=== PATIENT | male | born 2000 | race Caucasian/White ===

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

== ENCOUNTER → 2021-02-03 | Outpatient (CLI) | payer BC | LOC: LABNPT 07:59 | PROVIDERS: ATTEND Obstetrics & Gynecology | DX: Z20.822 Contact with and (suspected) exposure to COVID-19 (principal) | CPT/HCPCS: 87636 ==

== ENCOUNTER → 2021-08-11 | Outpatient (CLI) | payer OTHER | LOC: LABNPT 09:41 | PROVIDERS: ATTEND Obstetrics & Gynecology | DX: U07.1 COVID-19 (principal) | CPT/HCPCS: 87636 ==

== ENCOUNTER 2022-01-04 11:42 | Inpatient (IN) | payer OTHER ==
[~2022-01-04] VITALS: Ht 195 cm; Wt 71.0 kg
[2022-01-04 12:24] LABS: BASOPHILS # (AUTO) 0.1 10^3/uL (0.0-0.1); BASOPHILS % (AUTO) 1 % (0-10); EOSINOPHILS % (AUTO) 0 % (0-10); HEMATOCRIT 47 % (40-54); HEMOGLOBIN 15.6 g/dL (13.3-17.7); LYMPHOCYTES % (AUTO) 26 % (12-44); MEAN CORPUSCULAR HEMOGLOBIN 27 pg (25-34); MEAN CORPUSCULAR HGB CONC 33 g/dL (32-36); MEAN CORPUSCULAR VOLUME 82 fL (80-99); MONOCYTES # (AUTO) 0.7 10^3/uL (0.0-1.0); MONOCYTES % (AUTO) 9 % (0-12); NEUTROPHILS # (AUTO) 4.9 10^3/uL (1.8-7.8); NEUTROPHILS % (AUTO) 64 % (42-75); PLATELET COUNT 222 10^3/uL (130-400); WHITE BLOOD COUNT 7.7 10^3/uL (4.3-11.0)
--- NOTE | 2022-01-04 12:24 | ED Respiratory ---
General Chief Complaint: Respiratory Problems Stated Complaint: CHEST PAIN - BACK PAIN Source: patient, family Exam Limitations: no limitations History of Present Illness Date Seen by Provider: Jan 04, 2022 Time Seen by Provider: 11:45 Initial Comments Patient to the ER from radiology with chief complaint that he noticed he had a near total left spontaneous pneumothorax. He started having some chest pain shortness of air when he woke up 2 days ago Monday. No trauma. No history of pneumothoraces. 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 No diagnosis was made. No productive cough fevers chills diarrhea. Allergies and Home Medications Allergies Coded Allergies: No Allergy Information Available (Unverified , 10/10/17) Patient Home Medication List Home Medication List Reviewed: Yes Review of Systems Review of Systems Constitutional: No chills, No diaphoresis EENTM: No ear discharge, No ear pain Respiratory: No cough; short of breath Cardiovascular: chest pain; No edema Gastrointestinal: No abdominal pain, No nausea Genitourinary: No discharge, No dysuria Musculoskeletal: No back pain, No joint pain All Other Systems Reviewed Negative Unless Noted: Yes Past Aiygvzx-Gapgdo-Afbyrr Hx Patient Social History Tobacco Use?: No Use of E-Cig and/or Vaping dev: No Substance use?: Yes Substance type: Marijuana Alcohol Use?: No Physical Exam Vital Signs - First Documented 01/04/22 11:50 Temp 36.6 Pulse 85 B/P (MAP) 142/78 (99) Pulse Ox 97 Capillary Refill : Less Than 3 Seconds Height: '" Weight: lbs. oz. kg; 18.00 BMI Method: General Appearance: WD/WN, mild distress Eyes: Bilateral Eye Normal Inspection, Bilateral Eye PERRL, Bilateral Eye EOMI HEENT: PERRL/EOMI, normal ENT inspection, pharynx normal Neck: full range of motion, supple, normal inspection Respiratory: lungs clear, no respiratory distress, no accessory muscle use, other (Decreased breath sounds on the left side) Cardiovascular: normal peripheral pulses, regular rate, rhythm Neurologic/Psychiatric: alert, normal mood/affect Skin: normal color, warm/dry Progress/Results/Core Measures Suspected Sepsis SIRS Temperature: Pulse: 85 Respiratory Rate: Laboratory Tests 01/04/22 11:55: White Blood Count 7.7 Blood Pressure 142 /78 Mean: 99 Laboratory Tests 01/04/22 11:55: Creatinine 1.03, Platelet Count 222, Total Bilirubin 1.4H Results/Orders Lab Results Laboratory Tests Test 01/04/22 11:55 Range/Units White Blood Count 7.7 4.3-11.0 10^3/uL Red Blood Count 5.77 H 4.30-5.52 10^6/uL Hemoglobin 15.6 13.3-17.7 g/dL Hematocrit 47 40-54 % Mean Corpuscular Volume 82 80-99 fL Mean Corpuscular Hemoglobin 27 25-34 pg Mean Corpuscular Hemoglobin Concent 33 32-36 g/dL Red Cell Distribution Width 13.2 10.0-14.5 % Platelet Count 222 130-400 10^3/uL Mean Platelet Volume 10.0 9.0-12.2 fL Immature Granulocyte % (Auto) 0 % Neutrophils (%) (Auto) 64 42-75 % Lymphocytes (%) (Auto) 26 12-44 % Monocytes (%) (Auto) 9 0-12 % Eosinophils (%) (Auto) 0 0-10 % Basophils (%) (Auto) 1 0-10 % Neutrophils # (Auto) 4.9 1.8-7.8 10^3/uL Lymphocytes # (Auto) 2.0 1.0-4.0 10^3/uL Monocytes # (Auto) 0.7 0.0-1.0 10^3/uL Eosinophils # (Auto) 0.0 0.0-0.3 10^3/uL Basophils # (Auto) 0.1 0.0-0.1 10^3/uL Immature Granulocyte # (Auto) 0.0 0.0-0.1 10^3/uL Sodium Level 140 135-145 MMOL/L Potassium Level 3.5 L 3.6-5.0 MMOL/L Chloride Level 103 98-107 MMOL/L Carbon Dioxide Level 25 21-32 MMOL/L Anion Gap 12 5-14 MMOL/L Blood Urea Nitrogen 18 7-18 MG/DL Creatinine 1.03 0.60-1.30 MG/DL Estimat Glomerular Filtration Rate 106 BUN/Creatinine Ratio 17 Glucose Level 99 70-105 MG/DL Calcium Level 10.3 H 8.5-10.1 MG/DL Corrected Calcium 8.5-10.1 MG/DL Total Bilirubin 1.4 H 0.1-1.0 MG/DL Aspartate Amino Transf (AST/SGOT) 17 5-34 U/L Alanine Aminotransferase (ALT/SGPT) 22 0-55 U/L Alkaline Phosphatase 40 40-136 U/L C-Reactive Protein High Sensitivity 0.09 0.00-0.50 MG/DL Total Protein 8.2 6.4-8.2 GM/DL Albumin 5.2 H 3.2-4.5 GM/DL My Orders Orders - FEDERICO ERNANDEZ Ct Chest Wo (01/04/22 12:15) Cbc With Automated Diff (01/04/22 12:15) Comprehensive Metabolic Panel (01/04/22 12:15) Hs C Reactive Protein (01/04/22 12:15) Ed Iv/Invasive Line Start (01/04/22 12:15) Vital Signs/I&O 01/04/22 11:50 Temp 36.6 Pulse 85 B/P (MAP) 142/78 (99) Pulse Ox 97 Capillary Refill : Less Than 3 Seconds Blood Pressure Mean: 99 Progress Note : Time: 12:26 Progress Note Thoravent placed with the assistance of Dr. Lemus and patient going to CT looking for blebs. Plan to observe under Dr. Lemus's care. Diagnostic Imaging Diagonstic Imaging: CT Plain Films/CT/US/NM/MRI: chest Comments 95% reexpansion of the left lung. Thora vent in good position. NAME: KEV PISANO [facility] REC#: [id number] PT STATUS: REG ER : 2000 PHYSICIAN: FEDERICO ERNANDEZ MD ADMIT DATE: 01/04/22/ER Draft Date of Exam:01/04/[address] CHEST WO TECHNIQUE: Multiple contiguous axial images were obtained through the chest without the use of intravenous contrast. All CT scans use one or more of the following dose optimizing techniques: Automated exposure control, MA and/or KvP adjustment based on a patient size and exam type, or iterative reconstruction. INDICATION: Spontaneous pneumothorax. COMPARISON: Chest radiograph from earlier same day at 11:22 a.m. FINDINGS: Lungs and airway: No abnormality within the airway. No pulmonary cysts or emphysema. Left basilar atelectasis. No suspicious pulmonary nodules. No pneumonia or edema. Pleura: Left-sided chest tube is in place from an anterior approach. There remains a small left-sided pneumothorax. No pleural effusion. Heart and mediastinum: Thyroid is normal. No supraclavicular or axillary lymphadenopathy. No mediastinal or hilar lymphadenopathy. Heart is normal in size without pericardial effusion. Upper abdomen: No concerning abnormality of the upper abdomen. Musculoskeletal: There is a small amount of chest wall gas associated with the chest tube. IMPRESSION: 1. Well-positioned anterior left chest tube with near-complete expansion of left lung with a trace residual pneumothorax. 2. No pulmonary cysts or emphysema. Dictated on workstation # [id number] Dict: 01/04/22 1309 Trans: 01/04/22 1314 [id number] Interpreted by: ADRIANNA ZIEGLER MD Electronically signed by: Reviewed: Reviewed by Me Departure Communication (Admissions) Time/Spoke to Admitting Phy: 12:20 Dr. Lemus agrees to observe the patient. If significant amount of unresolved pneumothorax seen on CT then put the Thora vent to suction via atrium Impression Primary Impression: Spontaneous pneumothorax Disposition: ADMITTED INPATIENT Condition: Stable Admissions Decision to Admit Reason: Admit from ER (General) Decision to Admit/Date: Jan 04, 2022 Time/Decision to Admit Time: 12:20 Departure-Patient Inst. Referrals: BRIGITTE DORSEY MD (PCP/Family) Primary Care Physician FEDERICO ERNANDEZ Jan 04, 2022 12:24
[2022-01-04 12:40] LABS: ALANINE AMINOTRANSFERASE 22 U/L (0-55); ALBUMIN 5.2 GM/DL (3.2-4.5); ALKALINE PHOSPHATASE 40 U/L (40-136); BILIRUBIN,TOTAL 1.4 MG/DL (0.1-1.0); BUN/CREATININE RATIO 17; CALCIUM 10.3 MG/DL (8.5-10.1); CARBON DIOXIDE 25 MMOL/L (21-32); CHLORIDE 103 MMOL/L (98-107); CREATININE SERUM 1.03 MG/DL (0.60-1.30); GFR ESTIMATED 106; GLUCOSE 99 MG/DL (70-105); POTASSIUM 3.5 MMOL/L (3.6-5.0); SODIUM 140 MMOL/L (135-145); TOTAL PROTEIN 8.2 GM/DL (6.4-8.2)
--- NOTE | 2022-01-04 13:15 | Diagnostic Imaging Report ---
CT CHEST WO TECHNIQUE: Multiple contiguous axial images were obtained through the chest without the use of intravenous contrast. All CT scans use one or more of the following dose optimizing techniques: Automated exposure control, MA and/or KvP adjustment based on a patient size and exam type, or iterative reconstruction. INDICATION: Spontaneous pneumothorax. COMPARISON: Chest radiograph from earlier same day at 11:22 a.m. FINDINGS: Lungs and airway: No abnormality within the airway. No pulmonary cysts or emphysema. Left basilar atelectasis. No suspicious pulmonary nodules. No pneumonia or edema. Pleura: Left-sided chest tube is in place from an anterior approach. There remains a small left-sided pneumothorax. No pleural effusion. Heart and mediastinum: Thyroid is normal. No supraclavicular or axillary lymphadenopathy. No mediastinal or hilar lymphadenopathy. Heart is normal in size without pericardial effusion. Upper abdomen: No concerning abnormality of the upper abdomen. Musculoskeletal: There is a small amount of chest wall gas associated with the chest tube. IMPRESSION: 1. Well-positioned anterior left chest tube with near-complete expansion of left lung with a trace residual pneumothorax. 2. No pulmonary cysts or emphysema. Dictated by: Dictated on workstation # [id number]
--- NOTE | 2022-01-04 13:43 | Consultation - Surgery ---
History of Present Illness History of Present Illness Patient Consulted On(saman/time) 01/04/22 13:36 Date Seen by Provider: Jan 04, 2022 Time Seen by Provider: 12:30 History of Present Illness Seen and evaluated in ED. 21 year old male began having chest discomfort/pain 2 days ago. Continued to worsen. Certain positions would make better. Activity could make worse. Denies any trauma to chest. Slight cough though was maybe some bronchitis. Saw PCP today and had chest x ray demonstrating large left pneumothorax. Sent to ED for further management Allergies and Home Medications Allergies Coded Allergies: No Known Drug Allergies (Unverified , 01/04/22) Patient Home Medication List Home Medication List Reviewed: Yes Methylphenidate HCl (Methylphenidate HCl) 10 Mg Tablet, 10 MG PO TID PRN for ADHD , (Reported) Entered as Reported by: SUMMER CORTES on 01/05/22 1214 Last Action: Reviewed Past Pdeldgd-Rjfhud-Cdyeuq Hx Patient Social History Alcohol Use?: No Substance type: Marijuana Surgeries History of Surgeries: No Respiratory History of Respiratory Disorde: No Cardiovascular History of Cardiac Disorders: No Neurological History of Neurological Disord: No Gastrointestinal History of Gastrointestinal Di: No Musculoskeletal History of Musculoskeletal Dis: No Endocrine History of Endocrine Disorders: No HEENT History of HEENT Disorders: No Cancer History of Cancer: No Psychosocial History of Psychiatric Problem: No Integumentary History of Skin or Integumenta: No Reviewed Nursing Assessment Reviewed/Agree w Nursing PMH: Yes Family Medical History Significant Family History: No Pertinent Family Hx Review of Systems-General Constitutional: No diaphoresis, No fever EENTM: No blurred vision Respiratory: No cough; dyspnea on exertion, short of breath Cardiovascular: chest pain Gastrointestinal: No abdominal pain, No nausea, No vomiting Genitourinary: No decreased output, No discharge Musculoskeletal: No back pain, No joint pain Skin: No change in color, No change in hair/nails Psychiatric/Neurological: Denies Anxiety, Denies Depressed, Denies Emotional Problems All Other Systems Reviewed Negative Unless Noted: Yes (Negative excepted noted.) Physical Exam-General Problems Physical Exam Vital Signs Vital Signs - First Documented 01/04/22 11:50 Temp 36.6 Pulse 85 B/P (MAP) 142/78 (99) Pulse Ox 97 Capillary Refill : Less Than 3 Seconds General Appearance: WD/WN, mild distress, thin HEENT: PERRL/EOMI, normal ENT inspection Neck: non-tender, supple Respiratory: chest non-tender, other (slightly labored breathing) Cardiovascular: regular rate, rhythm, no JVD Gastrointestinal: non tender, soft Rectal: deferred Back: no CVA tenderness, no vertebral tenderness Extremities: normal range of motion, normal inspection, no pedal edema, no calf tenderness Neurologic/Psychiatric: alert, normal mood/affect, oriented x 3 Skin: normal color, warm/dry Lymphatic: no adenopathy Data Review Labs Laboratory Tests 01/04/22 11:55: White Blood Count 7.7, Red Blood Count 5.77H, Hemoglobin 15.6, Hematocrit 47, Mean Corpuscular Volume 82, Mean Corpuscular Hemoglobin 27, Mean Corpuscular Hemoglobin Concent 33, Red Cell Distribution Width 13.2, Platelet Count 222, Mean Platelet Volume 10.0, Immature Granulocyte % (Auto) 0, Neutrophils (%) (Auto) 64, Lymphocytes (%) (Auto) 26, Monocytes (%) (Auto) 9, Eosinophils (%) (Auto) 0, Basophils (%) (Auto) 1, Neutrophils # (Auto) 4.9, Lymphocytes # (Auto) 2.0, Monocytes # (Auto) 0.7, Eosinophils # (Auto) 0.0, Basophils # (Auto) 0.1, Immature Granulocyte # (Auto) 0.0, Sodium Level 140, Potassium Level 3.5L, Chloride Level 103, Carbon Dioxide Level 25, Anion Gap 12, Blood Urea Nitrogen 18, Creatinine 1.03, Estimat Glomerular Filtration Rate 106, BUN/Creatinine Ratio 17, Glucose Level 99, Calcium Level 10.3H, Corrected Calcium , Total Bilirubin 1.4H, Aspartate Amino Transf (AST/SGOT) 17, Alanine Aminotransferase (ALT/SGPT) 22, Alkaline Phosphatase 40, C-Reactive Protein High Sensitivity 0.09, Total Protein 8.2, Albumin 5.2H Assessment/Plan Assessment/Plan Assessment/Plan Spontaneous left pneumothorax left chest pain shortness of breath. Patient with left pneumothorax possible slight tension. He understands risks and benefits of thoravent placement, and understands risks and benefits. To be placed. Will get ct scan to check for cause of PTX. Will repeat chest x ray in am. Will admit. Procedure: Left thoravent (thoracostomy tube) placement. Left chest was prepped and draped in sterile fashion. 5 mL of 1% lidocaine with epinephrine was used to anesthesize the area. An [address] place scalpel was used to make small in incision for placement. Left mid clavicular line approximately 4th intercostal space thoravent advance till through chest wall and into chest space. Thoravent secured and air evacuated. JOSEMANUEL FLOWERS DO Jan 04, 2022 13:43
[2022-01-04] MEDS ORDERED: ACETAMINOPHEN 325 MG TABLET PO PRN (13:45)
[2022-01-04] MEDS ORDERED: ONDANSETRON 4 MG/2 ML (SDV) Z0FRAN IVP PRN (13:45)
[2022-01-04] MEDS: IBUPROFEN 800 MG (MOTRIN) TAB PO PRN ×2 (14:50→22:53)
[2022-01-04 15:16] VITALS: BP 135/75
[2022-01-04 19:04] VITALS: BP 133/79
[2022-01-04 23:48] VITALS: BP 134/81
[2022-01-05 03:57] VITALS: BP 112/66
[2022-01-05 07:25] VITALS: BP 123/70
--- NOTE | 2022-01-05 08:04 | Diagnostic Imaging Report ---
INDICATION: Follow-up pneumothorax. Comparison 01/04/2022. FINDINGS: Short caliber chest tube present over the left upper chest. There has been partial reexpansion the left lung. Small apical pneumothorax remains. Right lung is well-aerated and clear. Heart is not enlarged. No pleural effusion. IMPRESSION: 1. Small caliber chest tube over the left chest appears in good position. There has been considerable reexpansion the left lung with small residual apical pneumothorax. Dictated by: Dictated on workstation # [id number]
[2022-01-05] MEDS: IBUPROFEN 800 MG (MOTRIN) TAB PO PRN (09:40)
[2022-01-05 11:37] VITALS: BP 120/68
[2022-01-05] MEDS ORDERED: METH-288 PO (12:14)
[2022-01-05 15:29] VITALS: BP 104/62
--- NOTE | 2022-01-05 16:38 | Progress Note - Surgery ---
Subjective Date Seen by a Provider: Jan 05, 2022 Time Seen by a Provider: 08:30 Subjective/Events-last exam Patient is feeling okay. Not having the breathing issues or chest pain that he was having prior to having Thora vent placed. He is tolerating diet. He has no other complaints at this time. He denies any nausea vomiting fever sweats chills shortness of breath or chest pain. Patient chest x-ray demonstrating small apical left pneumothorax with Thora vent in good position. The Thora vent still has the bowel movement still currently. Objective Exam Vital Signs Date Time Temp Pulse Resp B/P (MAP) Pulse Ox O2 Delivery O2 Flow Rate FiO2 01/05/22 15:29 36.3 84 20 104/62 (76) 96 Room Air 01/05/22 11:37 36.6 55 18 120/68 (85) 98 Room Air 01/05/22 07:40 Room Air 01/05/22 07:25 36.7 53 18 123/70 (87) 98 Room Air 01/05/22 03:57 36.0 80 16 112/66 (81) 97 Room Air 01/04/22 23:48 37.2 67 18 134/81 (98) 98 Room Air 01/04/22 19:46 Room Air 01/04/22 19:04 36.4 82 20 133/79 (97) 96 Room Air I & O 01/05/22 06:59 Intake Total 910 ml Balance 910 ml Capillary Refill : Less Than 3 Seconds General Appearance: No Apparent Distress, Thin HEENT: PERRL/EOMI, Normal ENT Inspection Neck: Normal Inspection, Non Tender Respiratory: Chest Non Tender, No Accessory Muscle Use, No Respiratory Distress, Other (Thora vent left chest) Cardiovascular: Regular Rate, Rhythm, No JVD Gastrointestinal: non tender, soft Extremity: Normal Capillary Refill, Normal Inspection, Normal Range of Motion Neurologic/Psychiatric: Alert, Oriented x3, No Motor/Sensory Deficits, Normal Mood/Affect Skin: Normal Color, Warm/Dry Lymphatic: No Adenopathy Assessment/Plan Assessment/Plan Assessment/Plan Spontaneous left pneumothorax left chest pain shortness of breath. Patient is a small left pneumothorax. Still with air leak. Continue with curren t management. Repeat chest x-ray in the morning. JOSEMANUEL FLOWERS DO Jan 05, 2022 16:37
[2022-01-05 19:26] VITALS: BP 133/76
[2022-01-06] VITALS (7 sets, daily range): BP systolic 106–126; BP diastolic 64–79
--- NOTE | 2022-01-06 06:49 | Diagnostic Imaging Report ---
INDICATION: Pneumothorax. Comparison is made with prior exam of 01/05/2022. FINDINGS: The heart size is normal. There is a persistent left apical pneumothorax which is essentially unchanged. The mediastinum is unremarkable. There is no pleural effusion. Small bore left chest tube remains in place. IMPRESSION: Unchanged left apical pneumothorax. Dictated by: Dictated on workstation # [id number]
[2022-01-06] MEDS: IBUPROFEN 800 MG (MOTRIN) TAB PO PRN ×2 (08:59→20:30)
--- NOTE | 2022-01-06 14:12 | Progress Note - Surgery ---
Subjective Date Seen by a Provider: Jan 06, 2022 Time Seen by a Provider: 14:10 Subjective/Events-last exam Patient having similar discomfort in the left chest. Otherwise doing well. Repeat chest x-ray showing a small apical pneumothorax still. The valve continues to flutter on the left Heimlich valve. He denies any nausea vomiting fever sweats chills shortness of breath or chest pain. Objective Exam Vital Signs Date Time Temp Pulse Resp B/P (MAP) Pulse Ox O2 Delivery O2 Flow Rate FiO2 01/06/22 11:41 36.1 65 18 126/67 (86) 97 Room Air 01/06/22 08:03 37.0 68 18 106/64 (78) 99 Room Air 01/06/22 08:00 Room Air 01/06/22 03:56 36.3 68 16 113/67 (82) 98 Room Air 01/06/22 00:01 36.9 60 16 123/74 (90) 100 Room Air 01/05/22 20:00 Room Air 01/05/22 19:26 36.2 76 20 133/76 (95) 98 Room Air 01/05/22 15:29 36.3 84 20 104/62 (76) 96 Room Air I & O 01/06/22 07:00 Intake Total 2500 ml Balance 2500 ml Capillary Refill : Less Than 3 Seconds General Appearance: No Apparent Distress, Thin HEENT: PERRL/EOMI, Normal ENT Inspection Neck: Normal Inspection, Non Tender Respiratory: Chest Non Tender, No Accessory Muscle Use, No Respiratory Distress, Other (Thora vent left chest) Cardiovascular: Regular Rate, Rhythm, No JVD Gastrointestinal: non tender, soft Extremity: Normal Capillary Refill, Normal Inspection, Normal Range of Motion Neurologic/Psychiatric: Alert, Oriented x3, No Motor/Sensory Deficits, Normal Mood/Affect Skin: Normal Color, Warm/Dry Lymphatic: No Adenopathy Assessment/Plan Assessment/Plan Assessment/Plan Spontaneous left pneumothorax left chest pain shortness of breath. Patient is a small left pneumothorax. Still with air leak. Will put to atrium. Repeat chest x-ray in the morning. JOSEMANUEL FLOWERS DO Jan 06, 2022 14:11
[2022-01-07 04:05] VITALS: BP 118/66
--- NOTE | 2022-01-07 07:10 | Diagnostic Imaging Report ---
INDICATION: Follow-up left-sided pneumothorax. EXAMINATION: Chest 01/07/2022 COMPARISON: 01/06/2022 FINDINGS: Again seen is a small bore left-sided chest tube similar in positioning to previous imaging. The known left apical pneumothorax has markedly improved. No significant pneumothorax is seen at this time. Lungs clear. No effusions or infiltrates. Heart and pulmonary vasculature normal. IMPRESSION: 1. Near-complete if not complete resolution of the left apical pneumothorax with a small bore chest tube stable in positioning. Dictated by: Dictated on workstation # [id number]
[2022-01-07 08:11] VITALS: BP 117/68
[2022-01-07] MEDS: IBUPROFEN 800 MG (MOTRIN) TAB PO PRN ×2 (08:17→16:35)
[2022-01-07 12:01] VITALS: BP 117/72
[2022-01-07 15:10] VITALS: BP 138/68
--- NOTE | 2022-01-07 20:10 | Progress Note - Surgery ---
Subjective Date Seen by a Provider: Jan 07, 2022 Time Seen by a Provider: 16:12 Subjective/Events-last exam Patient is doing okay. He is not having significant chest pain. Patient had to have the Thora vent placed to atrium with suction. Today's chest x-ray demonstrating no pneumothorax Thora vent in good place. No significant air leak at this time. No other complaints denies any nausea vomiting fever sweats chills shortness of breath or chest pain. Objective Exam Vital Signs Date Time Temp Pulse Resp B/P (MAP) Pulse Ox O2 Delivery O2 Flow Rate FiO2 01/07/22 15:10 37.2 59 16 138/68 (91) 99 Room Air 01/07/22 12:01 36.8 56 19 117/72 (87) 99 Room Air 01/07/22 08:11 36.5 64 17 117/68 (84) 99 Room Air 01/07/22 08:00 Room Air 01/07/22 04:05 36.3 59 16 118/66 (83) 99 Room Air 01/06/22 23:58 37.0 59 18 124/72 (89) 97 Room Air 01/06/22 23:21 Room Air I & O 01/07/22 06:59 Intake Total 1550 ml Output Total 700 ml Balance 850 ml Capillary Refill : Less Than 3 Seconds General Appearance: No Apparent Distress, Thin HEENT: PERRL/EOMI, Normal ENT Inspection Neck: Normal Inspection, Non Tender Respiratory: Chest Non Tender, No Accessory Muscle Use, No Respiratory Distress, Other Cardiovascular: Regular Rate, Rhythm, No JVD Gastrointestinal: non tender, soft Extremity: Normal Capillary Refill, Normal Inspection, Normal Range of Motion Neurologic/Psychiatric: Alert, Oriented x3, No Motor/Sensory Deficits, Normal Mood/Affect Skin: Normal Color, Warm/Dry Lymphatic: No Adenopathy Assessment/Plan Assessment/Plan Assessment/Plan Spontaneous left pneumothorax left chest pain shortness of breath. No significant pneumothorax on chest x-ray this morning.. No significant air leak. We will keep him on suction at this time tomorrow morning we will take atrium off of the Thora vent leaving the Thora vent in place and then repeat chest x-ray. Hoping that this remains with no air leak and can remove later tomorrow. JOSEMANUEL FLOWERS DO Jan 07, 2022 20:10
[2022-01-08] VITALS: BP 122/61
[2022-01-08 07:20] VITALS: BP 119/74
--- NOTE | 2022-01-08 07:57 | Diagnostic Imaging Report ---
INDICATION: Pneumothorax, follow-up. TECHNIQUE: Single view chest 7:00 AM. CORRELATION STUDY: 01/07/2022 FINDINGS: The heart size, mediastinal configuration and pulmonary vascularity are within normal limits. Small caliber tubing over the left mid chest. Very small residual left apical pneumothorax. Left lung otherwise clear. IMPRESSION: 1. Trace left apical pneumothorax. Dictated by: Dictated on workstation # [id number]
[2022-01-08] MEDS: IBUPROFEN 800 MG (MOTRIN) TAB PO PRN (08:30)
--- NOTE | 2022-01-08 09:52 | Progress Note - Surgery ---
Subjective Date Seen by a Provider: Jan 08, 2022 Time Seen by a Provider: 09:40 Subjective/Events-last exam Feeling well. Trace pneumo on chest x ray, no air leak. No other new complaints. Denies n/v fever sweats chills shortness of breath or chest pain. Objective Exam Vital Signs Date Time Temp Pulse Resp B/P (MAP) Pulse Ox O2 Delivery O2 Flow Rate FiO2 01/08/22 07:52 Room Air 01/08/22 07:20 35.9 61 18 119/74 (89) 99 Room Air 01/08/22 00:00 36.7 89 17 122/61 (81) 98 Room Air 01/07/22 20:30 Room Air 01/07/22 15:10 37.2 59 16 138/68 (91) 99 Room Air 01/07/22 12:01 36.8 56 19 117/72 (87) 99 Room Air I & O 01/08/22 07:00 Intake Total 1660 ml Output Total 400 ml Balance 1260 ml Capillary Refill : Less Than 3 Seconds General Appearance: No Apparent Distress, Thin HEENT: PERRL/EOMI, Normal ENT Inspection Neck: Normal Inspection, Non Tender Respiratory: Chest Non Tender, No Accessory Muscle Use, No Respiratory Distress, Other (thoravent, no air leak left chest) Cardiovascular: Regular Rate, Rhythm, No JVD Gastrointestinal: non tender, soft Extremity: Normal Capillary Refill, Normal Inspection, Normal Range of Motion Neurologic/Psychiatric: Alert, Oriented x3, No Motor/Sensory Deficits, Normal Mood/Affect Skin: Normal Color, Warm/Dry Lymphatic: No Adenopathy Assessment/Plan Assessment/Plan Assessment/Plan Spontaneous left pneumothorax left chest pain shortness of breath. Trace pneumothorax on chest x-ray this morning.. No air leak. We will keep Thoravent in place. Discussed staying vs dc home and chest x ray in am on Monday. With follow up in office on Monday. Patient and family wanting to go home. Will dc c outpatient follow up. JOSEMANUEL FLOWERS DO Jan 08, 2022 09:52
--- NOTE | 2022-01-08 10:12 | Discharge Inst-Simple/Standard ---
Discharge Inst-Standard Patient Instructions/Follow Up Plan of Care/Instructions/FU: Mariah Monday morning after chest x ray. Activity as Tolerated: No Discharge Diet: Regular Diet Other Inst to Patient Follow up Appt: Monday after chest xray. Any issues call Dr. Lemus Instructions: No lifting greater than 10 pounds. No strenuous activity. No tub shower, bath or soaking. Use incentive spirometer at home as directed. No Smoking Symptoms to Report: Appetite Changes, Extremity Discoloration, Numbness/Tingling, Swelling Increased, Bleeding Excessive, Eyesight Changes, Pain Increased, Urine Color Change, Constipation(Persistent), Fever over 101 degree F, Pain/Pressure in chest, Urinating Difficulty, Cough Up/Vomit Blood, Heart Beat Irreg/Pounding, Pain/Pressure in jaw, Vaginal Bleeding Increase, Cramps in feet or legs, Lightheadedness, Pain/Pressure in shoulder, Diarrhea(Persistent), Memory Changes Suddenly, Questions/Concerns, Weight gain consecutive days, Dizziness/Fainting, Nausea/Vomiting, Shortness of Breath, Weight gain over 2 pounds If questions or concerns contact your physician Or seek help at emergency department. JOSEMANUEL LEMUS DO Jan 08, 2022 10:11
[2022-01-08 11:43] VITALS: BP 119/74
== END 2022-01-08 11:08 | disposition home or self-care (01) | DRG 201 ==
LOC: EDUNIT# 11:42 → ER 11:44 → 4TH 12:20 → OBSVTOIN 01-07 11:59
PROVIDERS: ADMIT Surgery; ATTEND Surgery
PROC: 0W9B30Z Drainage of Left Pleural Cavity with Drainage Device, Percutaneous Approach (ICD-10-PCS; principal; 2022-01-04)
DX: J93.83 Other pneumothorax (principal); F90.9 Attention-deficit hyperactivity disorder, unspecified type
CPT/HCPCS: 36415; 71045; 71250; 80053; 85025; 86141; 99284; G0378

== ENCOUNTER → 2022-01-04 | Outpatient (CLI) | payer OTHER ==
[~2022-01-04] MED LIST changes: -CATHETER FLUSH 10 ML SYR IV PRN; -IOHEXOL 350 MG/ML 150 ML (OMNIPAQUE 350) VIAL IV ONE; +METH-288 PO; -NS 100 ML (IVPB) BAG IV ONE
--- NOTE | 2022-01-04 11:35 | Diagnostic Imaging Report ---
INDICATION: Shortness of breath, chest discomfort. TECHNIQUE/COMPARISON: PA and lateral films of the chest were obtained at 11:22 AM and compared to 09/12/2017. FINDINGS: The heart is normal in size. There is a large left pneumothorax occupying the majority of the left pleural space with some shift of the mediastinum indicating tension. There is no significant pleural fluid. There is no definite infiltrate. IMPRESSION: Findings compatible with a large left pneumothorax with signs of tension. Findings were called to Fariba Stout APRN, at the time of dictation. Dictated by: Dictated on workstation # [id number]
== END ==
LOC: RAD 11:02
PROVIDERS: ATTEND Nurse Practitioner Family
DX: R06.02 Shortness of breath (principal); R07.89 Other chest pain
CPT/HCPCS: 71046

== ENCOUNTER → 2022-01-10 | Outpatient (CLI) | payer OTHER ==
--- NOTE | 2022-01-10 09:24 | Diagnostic Imaging Report ---
Indication: Followup pneumothorax. Time of Exam: 9:05 AM Correlation is made with prior radiograph from 01/08/2022. A left-sided Thora-Vent chest tube has been removed. No definite residual pneumothorax is identified. Lungs are well expanded. No infiltrates are seen. There is no effusion. The heart size is normal. IMPRESSION: Thora-Vent chest tube removal. No residual pneumothorax is detected. Dictated by: Dictated on workstation # [id number]
== END ==
LOC: RAD 08:49
PROVIDERS: ATTEND Surgery
DX: J93.83 Other pneumothorax (principal)
CPT/HCPCS: 71045

== ENCOUNTER 2022-03-20 18:15 | Emergency (ER) | payer OTHER ==
[~2022-03-20] VITALS: Ht 198 cm; Wt 72.0 kg
--- NOTE | 2022-03-20 18:44 | Diagnostic Imaging Report ---
INDICATION: Left-sided chest wall pain, history of spontaneous pneumothorax.. TECHNIQUE: Single view chest 6:20 PM. CORRELATION STUDY: 01/10/2022 FINDINGS: The heart size, mediastinal configuration and pulmonary vascularity are within normal limits. The lungs are clear with no consolidating infiltrate. There is no significant effusion or pneumothorax. IMPRESSION: 1. Negative appearing single view chest. Dictated by: Dictated on workstation # [id number]
--- NOTE | 2022-03-20 20:17 | Diagnostic Imaging Report ---
INDICATION: Chest pain. History of spontaneous pneumothorax. TECHNIQUE: Two view chest 7:43 PM. CORRELATION STUDY: 03/20/2022. FINDINGS: The heart size, mediastinal configuration and pulmonary vasculature are within normal limits. The lungs are clear with no consolidating infiltrate. There is no significant pleural effusion or pneumothorax. Visualized osseous structures are unremarkable. IMPRESSION: Negative for acute abnormality of the chest. If there is continued concern for acute cardiopulmonary abnormality, CT imaging of the chest is recommended. Dictated by: Dictated on workstation # [id number]
--- NOTE | 2022-03-20 20:59 | ED Chest Pain ---
General Chief Complaint: Chest Wall Stated Complaint: CP Nursing Triage Note: PT AMB TO RM 7 PT CO OF CHEST WALL PAIN ON L SIDE. PT HAS HX OF SPONT PNEMOTHORAX IN DECEMBER. PT RATES DISCOMFORT 12/07. STATES STARTED LAST PM AT APPROX 2200 WHILE WATCHING TV Source: patient Exam Limitations: no limitations History of Present Illness Date Seen by Provider: Mar 20, 2022 Time Seen by Provider: 18:18 Initial Comments This 22-year-old young man presents to the emergency room with left lower pleuritic chest pain. It started yesterday evening and has returned again today. He had history of a spontaneous pneumothorax in December which was treated with oral vent and followed by Dr. Flowers. He describes the pain as a "side stitch" that worsens with inspiration. He does not feel particularly short of breath. Allergies and Home Medications Allergies Coded Allergies: No Known Drug Allergies (Unverified , 01/04/22) Patient Home Medication List Home Medication List Reviewed: Yes Methylphenidate HCl (Methylphenidate HCl) 10 Mg Tablet, 10 MG PO TID PRN for ADHD , (Reported) Entered as Reported by: SUMMER CORTES on 01/05/22 1214 Review of Systems Review of Systems Constitutional: no symptoms reported EENTM: No Symptoms Reported Respiratory: See HPI Cardiovascular: No Symptoms Reported Gastrointestinal: No Symptoms Reported Genitourinary: No Symptoms Reported Musculoskeletal: no symptoms reported Skin: no symptoms reported Psychiatric/Neurological: No Symptoms Reported Endocrine: No Symptoms Reported Hematologic/Lymphatic: No Symptoms Reported Past Dslnisl-Fiyszf-Ewnkxt Hx Patient Social History Tobacco Use?: No Substance use?: Yes Substance type: Marijuana Alcohol Use?: No Past Medical History Surgery/Hospitalization HX: HX OF PNEMOTHORAX 01/19 Surgeries: No Respiratory: No Cardiac: No Neurological: No Gastrointestinal: No Musculoskeletal: No Endocrine: No HEENT: No Cancer: No Psychosocial: No Integumentary: No Family Medical History No Pertinent Family Hx Physical Exam Vital Signs Vital Signs - First Documented 03/20/22 18:20 Temp 36.8 Pulse 66 Resp 18 B/P (MAP) 130/70 (90) Pulse Ox 100 Capillary Refill : Less Than 3 Seconds Height, Weight, BMI Height: '" Weight: lbs. oz. 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 However, the quality of the images was not ideal. A follow-up two-view chest x-ray was obtained. Again, no changes. See discharge instructions. Initial ECG Impression Date: Mar 20, 2022 Initial ECG Impression Time: 18:23 Initial ECG Rate: 66 Initial ECG Rhythm: Normal Sinus Initial ECG Intervals: Normal Initial ECG Impression: Normal Comment Normal sinus rhythm with no ST elevation or depression. No axis deviation. Possible incomplete right bundle branch block. Diagnostic Imaging Diagonstic Imaging: Xray Plain Films/CT/US/NM/MRI: chest Comments One-view portable chest x-ray viewed by me and report reviewed. See report below: NAME: KEV PISANO [facility] REC#: [id number] PT STATUS: DEP ER : 2000 PHYSICIAN: BEV ERICKSON MD ADMIT DATE: 03/20/22/ER Signed Date of Exam:03/20/22 CHEST 1 VIEW, AP/PA ONLY INDICATION: Left-sided chest wall pain, history of spontaneous pneumothorax.. TECHNIQUE: Single view chest 6:20 PM. CORRELATION STUDY: 01/10/2022 FINDINGS: The heart size, mediastinal configuration and pulmonary vascularity are within normal limits. The lungs are clear with no consolidating infiltrate. There is no significant effusion or pneumothorax. IMPRESSION: 1. Negative appearing single view chest. Dictated by: Dictated on workstation # [id number] Dict: 03/20/221841 Trans: 03/20/222312 Interpreted by: GLENDA FORBES DO Electronically signed by: GLENDA FORBES DO 03/20/223 Diagonstic Imaging: Xray Plain Films/CT/US/NM/MRI: chest Comments 2 view chest x-ray viewed by me and report reviewed. See report below: NAME: KEV PISANO [facility] REC#: [id number] PT STATUS: DEP ER : 2000 PHYSICIAN: BEV ERICKSON MD ADMIT DATE: 03/20/22/ER Signed Date of Exam:03/20/22 CHEST PA/LAT (2 VIEW) INDICATION: Chest pain. History of spontaneous pneumothorax. TECHNIQUE: Two view chest 7:43 PM. CORRELATION STUDY: 03/20/2022. FINDINGS: The heart size, mediastinal configuration and pulmonary vasculature are within normal limits. The lungs are clear with no consolidating infiltrate. There is no significant pleural effusion or pneumothorax. Visualized osseous structures are unremarkable. IMPRESSION: Negative for acute abnormality of the chest. If there is continued concern for acute cardiopulmonary abnormality, CT imaging of the chest is recommended. Dictated by: Dictated on workstation # [id number] Dict: 03/20/222007 Trans: 03/20/222314 [facility] [id number] Interpreted by: GLENDA FORBES DO Electronically signed by: GLENDA FORBES DO 03/20/222314 Departure Impression Primary Impression: Pleuritic chest pain Additional Impression: History of pneumothorax Disposition: 01 HOME, SELF-CARE Condition: Stable Departure-Patient Inst. Decision time for Depature: 20:58 Referrals: BRIGITTE DORSEY MD (PCP/Family) Primary Care Physician Patient Instructions: Pleuritic Chest Pain ED, Pneumothorax (Collapsed Lung) Add. Discharge Instructions: You may take Tylenol (acetaminophen) up to 1000 mg every 6 hours as needed and/or ibuprofen up to 600 mg every 6 hours as needed for pain. If you have escalating pain and/or increasing shortness of breath, please return to the emergency room immediately or call 911. If your symptoms have not resolved despite taking mxsm-kba-mrbzhvc medications by midweek, please call Dr. Flowers and follow-up. Call with other questions or concerns, and return to the ER if you have any other worsening symptoms that require urgent attention. All discharge instructions reviewed with patient and/or family. Voiced understanding. Copy Copies To 1: JOSEMANUEL FLOWERS JOSHUA T MD Mar 20, 2022 20:59
[2022-03-20 21:03] VITALS: BP 121/72
== END 2022-03-20 21:04 | disposition home or self-care (01) ==
LOC: EDUNIT# 18:15 → ER 18:17
DX: R07.81 Pleurodynia (principal); Z87.09 Personal history of other diseases of the respiratory system; Z28.310 Unvaccinated for COVID-19
CPT/HCPCS: 71045; 71046; 93005

== ENCOUNTER 2022-11-14 10:44 | Inpatient (IN) | payer BC ==
[~2022-11-14] VITALS: Ht 195.6 cm; Wt 72.0 kg
--- NOTE | 2022-11-14 11:06 | ED Chest Pain ---
General Chief Complaint: Chest Pain Stated Complaint: CHEST PAIN Source: patient Exam Limitations: no limitations History of Present Illness Date Seen by Provider: Nov 14, 2022 Time Seen by Provider: 11:04 Initial Comments Patient is a 22-year-old male with a history of spontaneous pneumothorax presents ED with left-sided chest pain. Acute onset 1 hour ago. Patient states he was outside at the time playing with his dog. Patient felt a sharp pain on the left side of his chest. This pain was more of a gradual onset. Rates pain 4 out of 10. Shortness of breath. Pain with deep inspiration. Patient suffered a pneumothorax 1 year ago that required oral vent. Patient follows up with Dr. Lemus. Denies of any surgeries post pneumothorax. Denies of any fever, vomiting, diarrhea, coronary artery disease, heart disease, headache, dizziness. Allergies and Home Medications Allergies Coded Allergies: No Known Drug Allergies (Unverified , 01/04/22) Patient Home Medication List Home Medication List Reviewed: Yes Methylphenidate HCl (Methylphenidate HCl) 10 Mg Tablet, 10 MG PO TID PRN for ADHD , (Reported) Entered as Reported by: SUMMER CORTES on 01/05/22 1214 Review of Systems Review of Systems Constitutional: No chills, No diaphoresis, No malaise, No weakness EENTM: No Blurred Vision, No Double Vision, No Eye Pain Respiratory: Denies Cough, Denies Orthopnea, Denies SOA at Rest Cardiovascular: Denies Chest Pain Gastrointestinal: Denies Abdominal Pain, Denies Diarrhea, Denies Nausea, Denies Vomiting Genitourinary: Denies Burning, Denies Discharge Musculoskeletal: No back pain, No joint pain Skin: No change in color, No change in hair/nails Psychiatric/Neurological: Denies Anxiety, Denies Depressed All Other Systems Reviewed Negative Unless Noted: Yes Past Nlxtmgy-Xwpokb-Vusctm Hx Past Medical History Surgery/Hospitalization HX: HX OF PNEMOTHORAX 01/19 Surgeries: No Respiratory: No Cardiac: No Neurological: No Gastrointestinal: No Musculoskeletal: No Endocrine: No HEENT: No Cancer: No Psychosocial: No Integumentary: No Family Medical History No Pertinent Family Hx Physical Exam Vital Signs Vital Signs - First Documented 11/14/22 10:50 Temp 35.0 Pulse 79 Resp 20 B/P (MAP) 125/65 (85) Capillary Refill : Height, Weight, BMI Height: '" Weight: lbs. oz. 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 Norm as Tested Skin: Normal Color, Warm/Dry Progress/Results/Core Measures Results/Orders Lab Results Laboratory Tests Test 11/14/22 10:58 Range/Units White Blood Count 9.0 4.3-11.0 10^3/uL Red Blood Count 5.31 4.30-5.52 10^6/uL Hemoglobin 14.4 13.3-17.7 g/dL Hematocrit 44 40-54 % Mean Corpuscular Volume 83 80-99 fL Mean Corpuscular Hemoglobin 27 25-34 pg Mean Corpuscular Hemoglobin Concent 33 32-36 g/dL Red Cell Distribution Width 13.5 10.0-14.5 % Platelet Count 214 130-400 10^3/uL Mean Platelet Volume 9.8 9.0-12.2 fL Immature Granulocyte % (Auto) 1 % Neutrophils (%) (Auto) 38 L 42-75 % Lymphocytes (%) (Auto) 52 H 12-44 % Monocytes (%) (Auto) 7 0-12 % Eosinophils (%) (Auto) 1 0-10 % Basophils (%) (Auto) 1 0-10 % Neutrophils # (Auto) 3.5 1.8-7.8 10^3/uL Lymphocytes # (Auto) 4.7 H 1.0-4.0 10^3/uL Monocytes # (Auto) 0.6 0.0-1.0 10^3/uL Eosinophils # (Auto) 0.1 0.0-0.3 10^3/uL Basophils # (Auto) 0.1 0.0-0.1 10^3/uL Immature Granulocyte # (Auto) 0.1 0.0-0.1 10^3/uL Prothrombin Time 13.6 12.2-14.7 SEC INR Comment 1.0 0.8-1.4 Activated Partial Thromboplast Time 26 24-35 SEC Sodium Level 141 135-145 MMOL/L Potassium Level 3.4 L 3.6-5.0 MMOL/L Chloride Level 105 98-107 MMOL/L Carbon Dioxide Level 23 21-32 MMOL/L Anion Gap 13 5-14 MMOL/L Blood Urea Nitrogen 13 7-18 MG/DL Creatinine 0.95 0.60-1.30 MG/DL Estimat Glomerular Filtration Rate 116 BUN/Creatinine Ratio 14 Glucose Level 161 H 70-105 MG/DL Calcium Level 9.4 8.5-10.1 MG/DL Corrected Calcium 9.0 8.5-10.1 MG/DL Magnesium Level 2.0 1.6-2.4 MG/DL Total Bilirubin 0.9 0.1-1.0 MG/DL Aspartate Amino Transf (AST/SGOT) 24 5-34 U/L Alanine Aminotransferase (ALT/SGPT) 44 0-55 U/L Alkaline Phosphatase 33 L 40-136 U/L Myoglobin 15.3 10.0-92.0 NG/ML Troponin I < 0.028 <0.028 NG/ML B-Type Natriuretic Peptide < 10.0 <100.0 PG/ML Total Protein 7.1 6.4-8.2 GM/DL Albumin 4.5 3.2-4.5 GM/DL Lipase 16 8-78 U/L My Orders Orders - SHYANNE PENA Cbc With Automated Diff (11/14/22 11:01) Magnesium (11/14/22 11:01) Ekg Tracing (11/14/22 11:01) Comprehensive Metabolic Panel (11/14/22 11:01) Myoglobin Serum (11/14/22 11:01) Protime With Inr (11/14/22 11:01) Partial Thromboplastin Time (11/14/22 11:01) Monitor-Rhythm Ecg Trace Only (11/14/22 11:01) Ed Iv/Invasive Line Start (11/14/22 11:01) Lipase (11/14/22 11:01) Bnp Leticia (11/14/22 11:01) Troponin I [place] (11/14/22 11:01) Chest Pa/Lat (2 View) (11/14/22 11:03) Ketorolac Injection (Toradol Injection) (11/14/22 11:15) Lidocaine 1% Inj 20 Ml (Xylocaine 1% Inj (11/14/22 12:00) Lidocaine 1% Inj 20 Ml (Xylocaine 1% Inj (11/14/22 11:50) Chest 1 View, Ap/Pa Only (11/14/22 12:01) Acetaminophen Tablet (Tylenol Tablet) (11/14/22 12:29) Medications Given in ED Current Medications Medications Dose Ordered Sig/Cristofer Route Start Time Stop Time Status Last Admin Dose Admin Acetaminophen 500 mg STK-MED ONCE .ROUTE 11/14/22 12:29 11/14/22 12:33 DC 11/14/22 12:40 500 MG Ketorolac Tromethamine 30 mg ONCE ONCE IVP 11/14/22 11:15 11/14/22 11:16 DC 11/14/22 11:14 30 MG Lidocaine HCl 20 ml ONCE ONCE INJ 11/14/22 12:00 11/14/22 12:01 DC 11/14/22 12:22 20 ML Vital Signs/I&O 11/14/22 10:50 Temp 35.0 Pulse 79 Resp 20 B/P (MAP) 125/65 (85) Comment Sinus rhythm, right atrial enlargement, right bundle branch block, left PFB, 80 bpm, QRS duration 131 MS, QTc 548 MS Departure Communication (PCP) History of spontaneous pneumothorax. History of marijuana use. Last use was a few weeks ago. Patient Was playing outside with his dog felt a sharp pain in the left side chest. Tenderness to palpate. No known cardiac history. History of pneumothorax requiring Thora vent and follows up with Dr. Lemus. Reviewed previous H&P, lab testing. Due to left-sided chest pain EKG, chest ray and cardiac work-up. Chest x-ray shows Large left-sided pneumothorax is present with near-complete collapse of the left lung without significant mediastinal shift. EKG sinus rhythm without evidence of ST elevation or depression. Normal troponin. CBC, CMP grossly unremarkable besides a potassium of 3.4. Patient was discussed with Dr. Lemus who recommended Thora vent. This was discussed with patient. Procedure consent was provided to patient and agreed to proceed. Thora vent placed the left-sided anterior chest by Dr. Lemus. Second x-ray did show interval improvement but did still note a small to moderate pneumothorax. Patient was placed on the atrium. Recommend admission inpatient under Dr. Lemus. Continue with suctioning. Patient states symptoms continue to improve. Reassuring cardiac work-up. Patient will be admitted to Dr. Lemus with further evaluation. Impression Primary Impression: Spontaneous pneumothorax Disposition: ADMITTED INPATIENT Condition: Stable Admissions Decision to Admit Reason: Admit from ER (General) Decision to Admit/Date: Nov 14, 2022 Time/Decision to Admit Time: 12:30 Departure-Patient Inst. Referrals: BRIGITTE DORSEY MD (PCP/Family) Primary Care Physician SHYANNE PENA Nov 14, 2022 11:06
[2022-11-14 11:10] LABS: BASOPHILS # (AUTO) 0.1 10^3/uL (0.0-0.1); BASOPHILS % (AUTO) 1 % (0-10); EOSINOPHILS # (AUTO) 0.1 10^3/uL (0.0-0.3); EOSINOPHILS % (AUTO) 1 % (0-10); HEMATOCRIT 44 % (40-54); HEMOGLOBIN 14.4 g/dL (13.3-17.7); LYMPHOCYTES # (AUTO) 4.7 10^3/uL (1.0-4.0); LYMPHOCYTES % (AUTO) 52 % (12-44); MEAN CORPUSCULAR HEMOGLOBIN 27 pg (25-34); MEAN CORPUSCULAR HGB CONC 33 g/dL (32-36); MEAN CORPUSCULAR VOLUME 83 fL (80-99); MEAN PLATELET VOLUME 9.8 fL (9.0-12.2); MONOCYTES # (AUTO) 0.6 10^3/uL (0.0-1.0); MONOCYTES % (AUTO) 7 % (0-12); NEUTROPHILS # (AUTO) 3.5 10^3/uL (1.8-7.8); NEUTROPHILS % (AUTO) 38 % (42-75); PLATELET COUNT 214 10^3/uL (130-400)
[2022-11-14] MEDS ORDERED: KETOROLAC 30 MG/ML VIAL IVP ONE (11:15)
[2022-11-14 11:24] LABS: ALBUMIN 4.5 GM/DL (3.2-4.5)
[2022-11-14 11:25] LABS: POTASSIUM 3.4 MMOL/L (3.6-5.0)
--- NOTE | 2022-11-14 11:25 | Diagnostic Imaging Report ---
INDICATION: Chest pain. COMPARISON: 03/20/2022. TECHNIQUE: Three radiographs of the chest are obtained dated 11/14/2022. FINDINGS: The cardiac silhouette is within normal limits in size. No significant pulmonary vascular congestion. Large left-sided pneumothorax is present with near-complete collapse of the left lung. No significant mediastinal shift at this time. The right lung is clear. No significant pleural effusion. No right-sided pneumothorax. No acute osseous abnormality. IMPRESSION: Large left-sided pneumothorax is present with near-complete collapse of the left lung without significant mediastinal shift. Findings discussed with Dr. Rodriguez at 11:18 a.m. on 11/14/2022. Dictated by: Dictated on workstation # [id number]
[2022-11-14 11:26] LABS: CALCIUM 9.4 MG/DL (8.5-10.1)
[2022-11-14 11:27] LABS: TOTAL PROTEIN 7.1 GM/DL (6.4-8.2)
[2022-11-14 11:29] LABS: BILIRUBIN,TOTAL 0.9 MG/DL (0.1-1.0)
[2022-11-14 11:31] LABS: CREATININE SERUM 0.95 MG/DL (0.60-1.30)
[2022-11-14 11:37] LABS: PROTHROMBIN TIME PATIENT 13.6 SEC (12.2-14.7)
[2022-11-14] MEDS ORDERED: LIDOCAINE 1% INJ 20 ML VIAL ONE (11:50)
[2022-11-14] MEDS ORDERED: LIDOCAINE 1% INJ 20 ML VIAL INJ ONE (12:00)
[2022-11-14] MEDS ORDERED: ACETAMINOPHEN 500 MG TAB (TYLENOL) ONE (12:29)
--- NOTE | 2022-11-14 12:41 | Diagnostic Imaging Report ---
Clinical Indications: Post Thora vent placement. EXAM: Portable chest x-ray upright view. COMPARISON: Chest x-ray dated 11/14/2022 at 1120 hours. FINDINGS: There is interval placement of a Thora vent device overlying the left mid to upper chest region. There is interval decrease in the left pneumothorax a aivet-ad-aolskmft amount remaining. There is no mediastinal shift seen. There is improved aeration of the left lung. There is no lung infiltrate. There is no pleural effusion. Pulmonary vasculature and cardiac silhouette within normal limits. Bones show no significant abnormality. IMPRESSION: Interval placement of a Thora vent device with decreased size of the left pneumothorax. Continued follow-up chest x-rays to evaluate for resolution of the left pneumothorax is suggested. Dictated by: Dictated on workstation # [id number]
[2022-11-14 13:30] VITALS: BP 104/51
--- OUTSIDE RECORDS SUMMARY | 2022-11-14 13:35 | XMS REPORT | Clinical Summary ---
Author Author [facility] Organization [facility] Address Unknown Phone Unavailable Care Team Providers Care Roving Or Yarn Color Checker Name Role Phone CarLeobardo jama PCP Unavailable Tito Chacko MD Unavailable Source Comments Some departments are not documenting in the electronic medical record. If you d o not see the information that you expected, contact Release of Information in [facility] Information Management department at [phone] for further assistan ce in locating additional records.[facility] Allergies No known active allergies Medications End Date Status Medication Sig Dispensed Refills Start Date Active NO HOME MEDICATIONS 0 Active Problems Problem Noted Date Lymphadenopathy 01/03/2008 Medical History Medical History Date Comments Unspecified problem with special functions Social History Date Tobacco Use Types Packs/Day Years Used Smoking Tobacco: Never Comments Alcohol Use Standard Drinks/Week No 0 (1 standard drink = 0.6 o z pure alcohol) Sex Assigned at Date Recorded Not on file Obstetrics History Last Filed Vital Signs Reading Time Taken Comments Vital Sign 103/53 01/03/2008 9:00 AM CDT Blood Pressure 97 01/03/2008 9:00 AM CDT Pulse 38.3 C (100.9 F) 01/03/2008 10:45 AM CDT Temperature - - Respiratory Rate 98% 01/03/2008 9:00 AM CDT Oxygen Saturation - - Inhaled Oxygen Concentration 30.1 kg (66 lb 5.7 oz) 01/02/2008 7:00 PM CDT Weight 138 cm (4' 6.33") 01/02/2008 7:00 PM CDT Height 15.81 01/02/2008 7:00 PM CDT Body Mass Index Plan of Treatment Health Maintenance Due Date Last Done Comments COVID-19 VACCINE (#1) 2000 HPV VACCINES (1 - Male 02/13/2011 2-dose series) HIV SCREENING 02/13/2015 DTAP/TDAP VACCINES (1 - 02/13/2018 Tdap) HEPATITIS C SCREENING 02/13/2018 01/03/2008 PHYSICAL (COMPREHENSIVE) 02/13/2018 EXAM DEPRESSION SCREENING 07/31/2022 INFLUENZA VACCINE (Season 04/30/2023 Ended) MENINGOCOCCAL VACCINE Aged Out No longer eligib le based on patient's age to (ACWY,Menactra) complete this topic PNEUMOCOCCAL VACCINE 0-64 Aged Out No longer el igible based on patient's age to YRS complete this topic Results Not on filefrom Last 3 Months Care Teams Start Date End Date Roving Or Yarn Color Checker Relationship Specialty 01/02/08 Leobardo Mcanir PCP - General Do Not Use 05/31/10 Tito Chacko MD [address] [place] [address]
--- OUTSIDE RECORDS SUMMARY | 2022-11-14 13:35 | XMS REPORT | Clinical Summary ---
Author Author [facility] Address Unknown Phone Unavailable Care Team Providers Care Slitter Processed Film Name Role Phone PCP Unavailable Allergies No known active allergies Medications End Date Status Medication Sig Dispensed Refills Start Date Active adapalene (DIFFERIN) 0.1 apply to skin 0 0 % cream as directed 3 for acne. Active Clindamycin Phos-Benzoyl apply to skin 0 0 Perox (ACANYA) 1.2-2.5 % as directed 3 GEL for acne. Active .reconcile (MEDICATION No Sig 1 0 LIST IMPORTED) 3 Active Problems Problem Noted Date Diagnosed Date Precocious sexual development and puber ty, not elsewhere classified Social History Date Tobacco Use Types Packs/Day Years Used Smoking Tobacco: Never Assessed Date Recorded Sex and Gender Information Value Sex Assigned at Not on file Gender Identity Not on file Sexual Orientation Not on file Last Filed Vital Signs Reading Time Taken Comments Vital Sign 94/44 01/20/2010 11:54 AM CDT Blood Pressure - - Pulse - - Temperature - - Respiratory Rate - - Oxygen Saturation - - Inhaled Oxygen Concentration 39.9 kg (88 lb) 01/20/2010 11:54 AM CDT Weight 153 cm (5' 0.24") 01/20/2010 11:54 AM CDT Height 17.05 01/20/2010 11:54 AM CDT Body Mass Index Plan of Treatment Health Maintenance Due Date Last Done Comments COVID-19 Vaccine (#1) 2000 Varicella Vaccines (1 of 02/13/2001 2 - 2-dose childhood series) HPV Vaccines (1 - Male 02/13/2011 2-dose series) MenB Vaccine (Bexsero) (1 2016 of 2) Hepatitis C Screening 02/13/2018 DTaP,Tdap,and Td Vaccines 02/13/2019 (1 - Tdap) MMR Vaccines-Adult 02/13/2019 Influenza Vaccine (Season 03/31/2023 Ended) HIB Vaccines Aged Out No longer eligible based on patient's age to complete this topic IPV Vaccines Aged Out No longer eligible based on patient's age to complete this topic Meningococcal Vaccine Aged Out No longer eligib le based on patient's age to complete this topic Pneumo-Vaccine: At Risk Aged Out No longer elig ible based on patient's age to 6-64 Yrs complete this topic Rotavirus Vaccines Aged Out No longer eligible based on patient's age to complete this topic Results Not on filefrom Last 3 Months
--- NOTE | 2022-11-14 13:43 | History & Physical-Surgical ---
History of Present Illness History of Present Illness Reason for visit/HPI CC: Chest pain. Seen and evaluated in ED. Patient is a 22 year old male with history of spontaneous pneumothorax. He today began having chest pain that started about an hour prior to arrival. Sharp pain left side of chest . No radiation. Worse with deep breathing. Having some shortness of breath. Had chest x ray demonstrating a left pneumothorax. Date of Admission Nov 14, 2022 at 13:31 Date Seen by a Provider: Nov 14, 2022 Time Seen by a Provider: 11:48 I consulted on this patient on 11/14/22 13:34 Attending Physician Adriano Russell MD Admitting Physician Admitting Physician: Nohemy Jacobsen DO Attending Physician: Nohemy Jacobsen DO Consult Allergies and Home Medications Allergies Coded Allergies: No Known Drug Allergies (Unverified , 01/04/22) Patient Home Medication List Home Medication List Reviewed: Yes Methylphenidate HCl (Methylphenidate HCl) 10 Mg Tablet, 10 MG PO TID PRN for ADHD , (Reported) Entered as Reported by: SUMMER CORTES on 01/05/22 1214 Past Lopzmwu-Dhkpkb-Dqjtyf Hx Patient Social History Alcohol Use?: No Have you traveled recently?: No Surgeries History of Surgeries: No Respiratory History of Respiratory Disorde: No Cardiovascular History of Cardiac Disorders: No Neurological History of Neurological Disord: No Gastrointestinal History of Gastrointestinal Di: No Musculoskeletal History of Musculoskeletal Dis: No Endocrine History of Endocrine Disorders: No HEENT History of HEENT Disorders: No Cancer History of Cancer: No Psychosocial History of Psychiatric Problem: No Integumentary History of Skin or Integumenta: No Reviewed Nursing Assessment Reviewed/Agree w Nursing PMH: Yes Family Medical History Significant Family History: No Pertinent Family Hx Review of Systems Constitutional: No chills, No diaphoresis EENTM: No blurred vision, No double vision Respiratory: No cough; short of breath Cardiovascular: chest pain; No palpitations Gastrointestinal: No abdominal pain, No nausea, No vomiting Genitourinary: No decreased output, No discharge Musculoskeletal: No back pain, No joint pain Skin: No change in color, No change in hair/nails Psychiatric/Neurological: Denies Anxiety, Denies Depressed, Denies Emotional Problems All Other Systems Reviewed Negative Unless Noted: Yes (Negative excepted noted.) Physical Exam Vital Signs Vital Signs - First Documented 11/14/22 11/14/22 10:50 13:24 Temp 35.0 Pulse 79 Resp 20 B/P (MAP) 125/65 (85) O2 Delivery Room Air Capillary Refill : Height, Weight, BMI Height: '" Weight: lbs. oz. kg; 18.00 BMI Method: General Appearance: Anxious, Thin HEENT: PERRL/EOMI, Normal ENT Inspection Neck: Normal Inspection, Non Tender Respiratory: Other (absent breath sounds left upper chest, mild chest wall tenderness.) Cardiovascular: Regular Rate, Rhythm, No JVD Gastrointestinal: Non Tender, Soft Rectal: Deferred Back: No CVA Tenderness, No Vertebral Tenderness Extremity: Non Tender, No Calf Tenderness Neurologic/Psychiatric: Alert, Oriented x3, No Motor/Sensory Deficits, Normal Mood/Affect Skin: Normal Color, Warm/Dry Lymphatic: No Adenopathy Data Review Labs Laboratory Tests 11/14/22 10:58: White Blood Count 9.0, Red Blood Count 5.31, Hemoglobin 14.4, Hematocrit 44, Mean Corpuscular Volume 83, Mean Corpuscular Hemoglobin 27, Mean Corpuscular Hemoglobin Concent 33, Red Cell Distribution Width 13.5, Platelet Count 214, Mean Platelet Volume 9.8, Immature Granulocyte % (Auto) 1, Neutrophils (%) (Auto) 38L, Lymphocytes (%) (Auto) 52H, Monocytes (%) (Auto) 7, Eosinophils (%) (Auto) 1, Basophils (%) (Auto) 1, Neutrophils # (Auto) 3.5, Lymphocytes # (Auto) 4.7H, Monocytes # (Auto) 0.6, Eosinophils # (Auto) 0.1, Basophils # (Auto) 0.1, Immature Granulocyte # (Auto) 0.1, Prothrombin Time 13.6, INR Comment 1.0, Activated Partial Thromboplast Time 26, Sodium Level 141, Potassium Level 3.4L, Chloride Level 105, Carbon Dioxide Level 23, Anion Gap 13, Blood Urea Nitrogen 13, Creatinine 0.95, Estimat Glomerular Filtration Rate 116, BUN/Creatinine Ratio 14, Glucose Level 161H, Calcium Level 9.4, Corrected Calcium 9.0, Magnesium Level 2.0, Total Bilirubin 0.9, Aspartate Amino Transf (AST/SGOT) 24, Alanine Aminotransferase (ALT/SGPT) 44, Alkaline Phosphatase 33L, Myoglobin 1 5.3, Troponin I < 0.028, B-Type Natriuretic Peptide < 10.0, Total Protein 7.1, Albumin 4.5, Lipase 16 Assessment/Plan Assessment/Plan Admission Diagonsis spontaneous pneumothorax left Admission Status: Inpatient Order (span 2 midnights) Reason for Inpatient Admission: chest tube and will need serial radiological studies to evaluate and chest tube managment. Assessment/Plan spontaneous pneumothorax left Patient explained need of left thoravent placement. He understands risks and benefits and agrees to have placed. Repeat chest x ray showed improvement but not resolution of pneumo so attached to atrium and on suction. Patient to be admitted. Pain control Chest x ray in am. Procedure: Left thoravent placement. Left chest prepped and draped in sterile fashion. 5 mL of 1% lidocaine used to anesthetize the area and chest wall Left 3 rib interspace 11 blade used to make samll skin incision midclavicular line. The thoravent was then placed through chest wall and trocar removed. Evacuated air and secured thoravent in usual fashion. Tolerated without difficulty. Chest x ray pending. Clinical Quality Measures AMI/AHF: ASA po Prior to arrival: JOSEMANUEL Garcia DO Nov 14, 2022 13:43
[2022-11-14] MEDS ORDERED: CATHETER FLUSH 10 ML SYR IVP PRN (14:00)
[2022-11-14] MEDS: CATHETER FLUSH 10 ML SYR IVP SCH ×2 (15:32→21:16)
[2022-11-14 16:09] VITALS: BP 96/43
--- NOTE | 2022-11-14 17:08 | Consultation-Cardiology ---
HPI-Cardiology Cardiology Consultation Date of Consultation 11/14/22 Date of Admission Time Seen by Provider: 17:02 Indication: Chest pain HPI 22-year-old gentleman with a history of spontaneous pneumothorax occurred last year, woke up with left-sided chest pain, had sudden onset. Came into the emergency room and he was diagnosed with pneumothorax. Left-sided chest tube was placed. His telemetry showed changes in his ST segment. I was called for evaluation. On my evaluation he was laying down comfortably in bed, having pain at the chest tube site otherwise no chest pain. No palpitation. No syncope or near syncopal episodes, has been fairly active without difficulties. Home Medications & Allergies Allergies: Coded Allergies: No Known Drug Allergies (Unverified , 01/04/22) Home Medication List Reviewed: Yes [id number]-Tcormj-Bqcxnh Hx Patient Social History Marital Status: single Employed/Student: employed Smoking Status: Never a Smoker Have you traveled recently?: Yes Where was recent travel?: [place] Alcohol Use?: Yes Past Medical History History of recurrent spontaneous pneumothorax Family Medical History Significant Family History: No Pertinent Family Hx Review of Systems-General Review of Systems Constitutional: No chills, No diaphoresis, No malaise, No weakness EENTM: No blurred vision, No double vision Respiratory: see HPI; No cough; short of breath Cardiovascular: see HPI, chest pain; No edema, No Hx of Intervention, No palpitations, No syncope, No vascular heart diseas, No other Gastrointestinal: No abdominal pain, No nausea, No vomiting Genitourinary: No decreased output, No discharge Musculoskeletal: No back pain, No joint pain Skin: No change in color, No change in hair/nails Psychiatric/Neurological: Denies Anxiety, Denies Depressed All Other Systems Reviewed Negative Unless Noted: Yes (Negative excepted noted.) Reviewed Test Results Reviewed Test Results Lab Laboratory Tests Test 11/14/22 10:58 Range/Units White Blood Count 9.0 4.3-11.0 10^3/uL Red Blood Count 5.31 4.30-5.52 10^6/uL Hemoglobin 14.4 13.3-17.7 g/dL Hematocrit 44 40-54 % Mean Corpuscular Volume 83 80-99 fL Mean Corpuscular Hemoglobin 27 25-34 pg Mean Corpuscular Hemoglobin Concent 33 32-36 g/dL Red Cell Distribution Width 13.5 10.0-14.5 % Platelet Count 214 130-400 10^3/uL Mean Platelet Volume 9.8 9.0-12.2 fL Immature Granulocyte % (Auto) 1 % Neutrophils (%) (Auto) 38 L 42-75 % Lymphocytes (%) (Auto) 52 H 12-44 % Monocytes (%) (Auto) 7 0-12 % Eosinophils (%) (Auto) 1 0-10 % Basophils (%) (Auto) 1 0-10 % Neutrophils # (Auto) 3.5 1.8-7.8 10^3/uL Lymphocytes # (Auto) 4.7 H 1.0-4.0 10^3/uL Monocytes # (Auto) 0.6 0.0-1.0 10^3/uL Eosinophils # (Auto) 0.1 0.0-0.3 10^3/uL Basophils # (Auto) 0.1 0.0-0.1 10^3/uL Immature Granulocyte # (Auto) 0.1 0.0-0.1 10^3/uL Prothrombin Time 13.6 12.2-14.7 SEC INR Comment 1.0 0.8-1.4 Activated Partial Thromboplast Time 26 24-35 SEC Sodium Level 141 135-145 MMOL/L Potassium Level 3.4 L 3.6-5.0 MMOL/L Chloride Level 105 98-107 MMOL/L Carbon Dioxide Level 23 21-32 MMOL/L Anion Gap 13 5-14 MMOL/L Blood Urea Nitrogen 13 7-18 MG/DL Creatinine 0.95 0.60-1.30 MG/DL Estimat Glomerular Filtration Rate 116 BUN/Creatinine Ratio 14 Glucose Level 161 H 70-105 MG/DL Calcium Level 9.4 8.5-10.1 MG/DL Corrected Calcium 9.0 8.5-10.1 MG/DL Magnesium Level 2.0 1.6-2.4 MG/DL Total Bilirubin 0.9 0.1-1.0 MG/DL Aspartate Amino Transf (AST/SGOT) 24 5-34 U/L Alanine Aminotransferase (ALT/SGPT) 44 0-55 U/L Alkaline Phosphatase 33 L 40-136 U/L Myoglobin 15.3 10.0-92.0 NG/ML Troponin I < 0.028 <0.028 NG/ML B-Type Natriuretic Peptide < 10.0 <100.0 PG/ML Total Protein 7.1 6.4-8.2 GM/DL Albumin 4.5 3.2-4.5 GM/DL Lipase 16 8-78 U/L Physical Exam Physical Exam Vital Signs Vital Signs - First Documented 11/14/22 11/14/22 11/14/22 10:50 13:24 13:30 Temp 35.0 Pulse 79 Resp 20 B/P (MAP) 125/65 (85) Pulse Ox 97 O2 Delivery Room Air Capillary Refill : Height, Weight, BMI Height: '" Weight: lbs. oz. kg; 18.81 BMI Method: General Appearance: No Apparent Distress, WD/WN HEENT: PERRL/EOMI, TMs Normal, Normal ENT Inspection, Pharynx Normal Neck: Full Range of Motion, Normal Inspection, Non Tender Respiratory: Chest Non Tender, Lungs Clear, Normal Breath Sounds, No Accessory Muscle Use, No Respiratory Distress Cardiovascular: Regular Rate, Rhythm, No Edema, No Gallop, No JVD Gastrointestinal: Normal Bowel Sounds, No Organomegaly, No Pulsatile Mass Rectal: Deferred Back: No CVA Tenderness, No Vertebral Tenderness Extremity: Non Tender, No Calf Tenderness Neurologic/Psychiatric: Alert, Oriented x3, No Motor/Sensory Deficits, Normal 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 Status post chest tube placement. Continue to monitor Abnormal EKG with incomplete right bundle branch block alternating with right bundle branch block Repeat EKG showed slightly widening QRS but still incomplete right bundle branch block. Continue to monitor Planning to evaluate 2D echo Stress test done in August 2017 with excellent exercise tolerance for 19 minutes on Gerardo protocol with hypertensive response to exercise and no arrhythmia noted or ischemic changes. 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 We discussed the need for pulmonary evaluation which will be scheduled as an outpatient. Clinical Quality Measures AMI/AHF: ASA po Prior to arrival: JUDD Rivers MD Nov 14, 2022 17:08
[2022-11-14 20:50] VITALS: BP 110/66
[2022-11-14] MEDS: ACETAMINOPHEN 325 MG TABLET PO PRN (21:16)
[2022-11-14 23:58] VITALS: BP 106/56
[2022-11-15 03:45] VITALS: BP 105/53
[2022-11-15] MEDS: CATHETER FLUSH 10 ML SYR IVP SCH ×3 (06:15→20:18)
--- NOTE | 2022-11-15 06:17 | Progress Note - Surgery ---
DON SAMPSON 11/15/22 0617: Subjective Date Seen by a Provider: Nov 15, 2022 Time Seen by a Provider: 05:40 Subjective/Events-last exam Pt. awake and resting comfortably in bed. Claims his SOB is improved. His chest pain is only present when he takes deep breaths or coughs, but the pain has also improved from yesterday. Review of Systems General: No Chills, No Night Sweats HEENT: No Head Aches, No Visual Changes Pulmonary: Dyspnea, Cough Cardiovascular: Chest Pain (on deep breaths); No: Palpitations Gastrointestinal: No: Nausea, Vomiting, Abdominal Pain Genitourinary: No Dysuria, No Frequency Musculoskeletal: No: neck pain, shoulder pain Neurological: No: Weakness, Numbness, Confusion Objective Exam Vital Signs Date Time Temp Pulse Resp B/P (MAP) Pulse Ox O2 Delivery O2 Flow Rate FiO2 11/15/22 03:45 36.5 50 16 105/53 (70) 97 Room Air 11/15/22 01:20 42 11/14/22 23:58 36.4 60 16 106/56 (73) 95 Room Air 11/14/22 20:50 36.8 60 16 110/66 (81) 98 Room Air 11/14/22 20:00 Room Air 11/14/22 19:32 91 11/14/22 16:09 36.4 69 16 96/43 (60) 98 Room Air 11/14/22 15:21 Room Air 11/14/22 15:17 57 11/14/22 13:30 37.1 66 18 104/51 (68) 97 Room Air 11/14/22 13:24 35.0 74 18 99/58 Room Air 11/14/22 10:50 35.0 79 20 125/65 (85) I & O 11/15/22 07:00 Intake Total 1600 ml Balance 1600 ml Capillary Refill : General Appearance: No Apparent Distress, WD/WN HEENT: PERRL/EOMI, Moist Mucous Membranes Neck: Non Tender, Supple Respiratory: No Accessory Muscle Use, No Respiratory Distress, Decreased Breath Sounds (left apex) Cardiovascular: No Murmur, Bradycardia Gastrointestinal: non tender, soft Extremity: Non Tender, No Calf Tenderness Neurologic/Psychiatric: Alert, Oriented x3 Skin: Normal Color, Warm/Dry Lymphatic: No Adenopathy Results Lab Laboratory Tests 11/14/22 10:58: White Blood Count 9.0, Red Blood Count 5.31, Hemoglobin 14.4, Hematocrit 44, M sonu Corpuscular Volume 83, Mean Corpuscular Hemoglobin 27, Mean Corpuscular Hemoglobin Concent 33, Red Cell Distribution Width 13.5, Platelet Count 214, Mean Platelet Volume 9.8, Immature Granulocyte % (Auto) 1, Neutrophils (%) (Auto) 38L, Lymphocytes (%) (Auto) 52H, Monocytes (%) (Auto) 7, Eosinophils (%) (Auto) 1, Basophils (%) (Auto) 1, Neutrophils # (Auto) 3.5, Lymphocytes # (Auto) 4.7H, Monocytes # (Auto) 0.6, Eosinophils # (Auto) 0.1, Basophils # (Auto) 0.1, Immature Granulocyte # (Auto) 0.1, Prothrombin Time 13.6, INR Comment 1.0, Activated Partial Thromboplast Time 26, Sodium Level 141, Potassium Level 3.4L, Chloride Level 105, Carbon Dioxide Level 23, Anion Gap 13, Blood Urea Nitrogen 13, Creatinine 0.95, Estimat Glomerular Filtration Rate 116, BUN/Creatinine Ratio 14, Glucose Level 161H, Calcium Level 9.4, Corrected Calcium 9.0, Magnesium Level 2.0, Total Bilirubin 0.9, Aspartate Amino Transf (AST/SGOT) 24, Alanine Aminotransferase (ALT/SGPT) 44, Alkaline Phosphatase 33L, Myoglobin 15.3, Troponin I < 0.028, B-Type Natriuretic Peptide < 10.0, Total Protein 7.1, Albumin 4.5, Lipase 16 Assessment/Plan Assessment/Plan Assessment/Plan S/P thoravent placement for left spontaneous pneumothorax Repeat chest x ray following procedure yesterday showed improvement but not resolution of pneumo so attached to atrium and on suction. Pain control Supplemental O2 Chest x ray this morning completed, showed improvement, not full resolution Left pneumo has not resolved, we will keep him inpatient for another day to monitor for improvement, repeat CXR tomorrow Cardiology consulted and has seen patient Clinical Quality Measures AMI/AHF: ASA po Prior to arrival: No MORRIS LEMUS DO 11/15/22 5741: Subjective Subjective/Events-last exam Feeling better. Pain controlled only occurs with deep breathing. No shortness of breath at this time. Thoravent attached to atrium, still with air leak. Ch est x ray with smaller pneumothorax left side. Objective Exam General Appearance: No Apparent Distress, Thin HEENT: PERRL/EOMI, Moist Mucous Membranes Neck: Non Tender, Supple Respiratory: Chest Non Tender, No Accessory Muscle Use, No Respiratory Distress Cardiovascular: Regular Rate, Rhythm, Other (left anterior chest c thoravent) Gastrointestinal: non tender, soft Extremity: Non Tender, No Calf Tenderness Neurologic/Psychiatric: Alert, Oriented x3 Skin: Normal Color, Warm/Dry Lymphatic: No Adenopathy Assessment/Plan Assessment/Plan Assessment/Plan left spontaneous pneumothorax S/P thoravent placement Repeat chest x ray following procedure yesterday showed improvement but not resolution of pneumo so attached to atrium and on suction. Pain control Supplemental O2 Chest x ray this morning completed, showed improvement, not full resolution Left pneumo has not resolved, we will keep him to atrium/suction Repeat chest x ray in am Cardiology consulted and has seen patient Supervisory-Addendum Brief Verification & Attestation Participated in pt care: history, MDM, physical Personally performed: exam, history, MDM, supervision of care Care discussed with: Medical Student Procedures: n/a Results interpretation: Verified all documentation Verification and Attestation of Medical Student E/M Service A medical student performed and documented this service in my presence. I reviewed and verified all information documented by the medical student and made modifications to such information, when appropriate. I personally performed the physical exam and medical decision making. Morris Lemus, Nov 15, 2022,22:35 DON SAMPSON Nov 15, 2022 06:17 MORRIS LEMUS DO Nov 15, 2022 22:35
[2022-11-15 08:06] VITALS: BP 106/61
--- NOTE | 2022-11-15 09:14 | Diagnostic Imaging Report ---
INDICATION: Pneumothorax COMPARISON: 11/14/2022 TECHNIQUE: Single radiograph chest dated 11/15/2022 FINDINGS: Small caliber left-sided chest tube is again identified stable. Small left-sided pneumothorax is identified, though this appears improved from the prior examination. No mediastinal shift. No right-sided pneumothorax. The remainder of examination appears stable. IMPRESSION: Improved though small persisting left-sided pneumothorax without tension phenomenon with left-sided chest tube remaining in place. Dictated by: Dictated on workstation # [id number]
--- NOTE | 2022-11-15 09:17 | Cardiology Progress Note ---
Subjective Date Seen by Provider: Nov 15, 2022 Time Seen by Provider: 09:16 Subjective/Events-last exam Patient was seen at bedside, laying down comfortably, feeling better Objective-Cardiology Exam Last Set of Vital Signs Vital Signs 11/15/22 08:06 Temp 36.3 Pulse 47 Resp 20 B/P (MAP) 106/61 (76) Pulse Ox 98 O2 Delivery Room Air I&O Intake and Output 11/14/22 23:59 Intake Total 1400 ml Balance 1400 ml Intake Oral 1400 ml # Voids 2 Daily Weight Change No General: Alert, Oriented X3, Cooperative HEENT: Atraumatic, PERRLA Neck: Supple, No JVD, No Thyromegaly Lungs: Clear to Auscultation, Normal Air Movement Heart: Regular Rate, Normal S1, Normal S2, No Murmurs Abdomen: Normal Bowel Sounds, Soft, No Tenderness, No Hepatosplenomegaly, No Masses Extremities: No Clubbing, No Cyanosis, No Edema, Normal Pulses, No Tenderness/Swelling Skin: No Rashes, No Breakdown, No Significant Lesion Neuro: Normal Gait, Normal Speech, Strength at 5/5 X4 Ext, Normal Tone, Sensati on Intact Psych/Mental Status: Mental Status NL, Mood NL Results Lab Laboratory Tests 11/14/22 10:58 A/P-Cardiology Admission Diagnosis Chest pain Right bundle branch block Pneumothorax Assessment/Plan Chest pain, nonspecific etiology Secondary to spontaneous pneumothorax. Status post chest tube placement. Continue to monitor Abnormal EKG with incomplete right bundle branch block alternating with right bundle branch block Did not change from his baseline. Continue to monitor 2D echo was somewhat limited, showing normal LV size and contractility. Ejection fraction 60%. Stress test done in August 2017 with excellent exercise tolerance for 19 minutes on Gerardo protocol with hypertensive response to exercise and no arrhythmia noted or ischemic changes. 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 We discussed the need for pulmonary evaluation which will be scheduled as an outpatient. JUDD DC MD Nov 15, 2022 09:17
[2022-11-15 12:19] VITALS: BP 100/55
[2022-11-15] MEDS: ACETAMINOPHEN 325 MG TABLET PO PRN (15:45)
[2022-11-15 16:18] VITALS: BP 119/62
[2022-11-15 20:10] VITALS: BP 116/65
[2022-11-15 23:26] VITALS: BP 118/76
[2022-11-16 03:51] VITALS: BP 104/52
[2022-11-16] MEDS: CATHETER FLUSH 10 ML SYR IVP SCH ×3 (05:50→20:16)
--- NOTE | 2022-11-16 07:19 | Progress Note - Surgery ---
DON SAMPSON 11/16/22 0719: Subjective Date Seen by a Provider: Nov 16, 2022 Time Seen by a Provider: 06:50 Subjective/Events-last exam Patient says he feels about the same today as yesterday. He has minimal SOB when resting, and the only time he has pain is when he takes deep breaths or coughs. He is ambulating to use the bathroom. Voiding and having BMs normally. He is still hooked up to [facility]/suction, when asked to cough there is still an air leak present. Review of Systems General: No Chills, No Night Sweats HEENT: No Head Aches, No Dysphasia, No Sore Throat Pulmonary: Dyspnea; No Cough; Pleuritic Chest Pain (when taking deep breath) Cardiovascular: No: Chest Pain, Palpitations, Lt Headedness Gastrointestinal: No: Nausea, Vomiting, Abdominal Pain Genitourinary: No Dysuria, No Frequency Musculoskeletal: No: neck pain, shoulder pain, back pain Neurological: No: Weakness, Numbness, Confusion Objective Exam Vital Signs Date Time Temp Pulse Resp B/P (MAP) Pulse Ox O2 Delivery O2 Flow Rate FiO2 11/16/22 03:51 36.8 51 18 104/52 (69) 97 Room Air 11/16/22 01:19 50 11/15/22 23:26 36.6 60 18 118/76 (90) 99 Room Air 11/15/22 20:15 Room Air 11/15/22 20:10 36.8 52 18 116/65 (82) 98 Room Air 11/15/22 19:24 75 11/15/22 16:18 36.7 58 16 119/62 (81) 100 Room Air 11/15/22 13:27 56 11/15/22 12:19 37.3 52 18 100/55 (70) 99 Room Air 11/15/22 09:00 Room Air 11/15/22 08:06 36.3 47 20 106/61 (76) 98 Room Air 11/15/22 07:36 45 I & O 11/16/22 07:00 Intake Total 1880 ml Balance 1880 ml Capillary Refill : General Appearance: No Apparent Distress, Thin HEENT: PERRL/EOMI, Moist Mucous Membranes Neck: Non Tender, Supple Respiratory: No Accessory Muscle Use, No Respiratory Distress, Decreased Breath Sounds (left apex) Cardiovascular: No Murmur, Normal Peripheral Pulses, Bradycardia, Other (left anterior chest c thoravent) Gastrointestinal: non tender, soft Extremity: Non Tender, No Calf Tenderness Neurologic/Psychiatric: Alert, Oriented x3 Skin: Normal Color, Warm/Dry Lymphatic: No Adenopathy Assessment/Plan Assessment/Plan Assessment/Plan left spontaneous pneumothorax S/P thoravent placement Patient still hooked up to [facility]/suction. Pain control Supplemental O2 Chest x ray this morning completed, looked similar to yesterday, still no full resolution Left pneumo has not resolved, we will keep him to [facility]rium/suction Repeat chest x ray in am Cardiology consulted and has seen patient Clinical Quality Measures AMI/AHF: ASA po Prior to arrival: JOSEMANUEL Garcia DO 11/16/22 1642: Subjective Subjective/Events-last exam Still with small air leak. Minimal shortness of breath. Pain controlled. Chest x ray with small left apical pneumothorax. Denies n/v fever sweats chills shortness of breath or chest pain. Objective Exam General Appearance: No Apparent Distress, Thin HEENT: PERRL/EOMI, Normal ENT Inspection Neck: Non Tender, Supple Respiratory: Chest Non Tender, No Accessory Muscle Use, No Respiratory Distress Cardiovascular: Regular Rate, Rhythm, No JVD, Other (left anterior chest c thoravent) Gastrointestinal: non tender, soft Extremity: Non Tender, No Calf Tenderness Neurologic/Psychiatric: Alert, Oriented x3 Skin: Normal Color, Warm/Dry Lymphatic: No Adenopathy Assessment/Plan Assessment/Plan Assessment/Plan left spontaneous pneumothorax S/P thoravent placement Patient still hooked up to [facility]/suction. Pain control Chest x ray this morning completed, small left pneumo Left pneumo has not resolved, we will keep him to [facility]rium/suction Repeat chest x ray in am Cardiology consulted and has seen patient Supervisory-Addendum Brief Verification & Attestation Participated in pt care: history, MDM, physical Personally performed: exam, history, MDM, supervision of care Care discussed with: Medical Student Procedures: n/a Results interpretation: Verified all documentation Verification and Attestation of Medical Student E/M Service A medical student performed and documented this service in my presence. I reviewed and verified all information documented by the medical student and made modifications to such information, when appropriate. I personally performed the physical exam and medical decision making. Josemanuel Lemus, Nov 16, 2022,16:42 DON SAMPSON Nov 16, 2022 07:19 JOSEMANUEL LEMUS DO Nov 16, 2022 16:42
[2022-11-16 07:51] VITALS: BP 110/54
[2022-11-16] MEDS: ACETAMINOPHEN 325 MG TABLET PO PRN (09:42)
--- NOTE | 2022-11-16 09:55 | Cardiology Progress Note ---
Subjective Date Seen by Provider: Nov 16, 2022 Time Seen by Provider: 09:54 Subjective/Events-last exam Patient c/o chest wall pain with deep inspiration and cough Objective-Cardiology Exam Last Set of Vital Signs Vital Signs 11/16/22 11/16/22 12:04 13:09 Temp 36.5 Pulse 55 Resp 20 B/P (MAP) 124/60 (81) Pulse Ox 97 O2 Delivery Room Air I&O Intake and Output 11/16/22 00:00 Intake Total 1880 ml Balance 1880 ml Intake Oral 1880 ml # Voids 5 # Bowel Movements 1 General: Alert, Oriented X3, Cooperative HEENT: Atraumatic, PERRLA Neck: Supple, No JVD, No Thyromegaly Lungs: Clear to Auscultation, Normal Air Movement Heart: Regular Rate, Normal S1, Normal S2, No Murmurs Abdomen: Normal Bowel Sounds, Soft, No Tenderness, No Hepatosplenomegaly, No Masses Extremities: No Clubbing, No Cyanosis, No Edema, Normal Pulses, No Tenderness/Swelling Skin: No Rashes, No Breakdown, No Significant Lesion Neuro: Normal Gait, Normal Speech, Strength at 5/5 X4 Ext, Normal Tone, Sensati on Intact Psych/Mental Status: Mental Status NL, Mood NL A/P-Cardiology Admission Diagnosis Chest pain Right bundle branch block Pneumothorax Assessment/Plan Chest pain, nonspecific etiology Secondary to spontaneous pneumothorax. Status post chest tube placement. Continue to monitor Abnormal EKG with incomplete right bundle branch block alternating with right bundle branch block Did not change from his baseline. Continue to monitor 2D echo was somewhat limited, showing normal LV size and contractility. Ejection fraction 60%. Stress test done in August 2017 with excellent exercise tolerance for 19 minutes on Gerardo protocol with hypertensive response to exercise and no arrhyt hmia noted or ischemic changes. 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 We discussed the need for pulmonary evaluation which will be scheduled as an outpatient. Supervisory-Addendum Brief Supervisory Addendum Participated in pt care: history, MDM, physical Personally performed: exam, history, MDM Care discussed with: RIKKI Results interpretation: Verified all documentation Notes: Patient was seen and evaluated with Pilar, examination performed, management plan was discussed, agree with the current scribed note, I made few changes to the note using Italic font Patient was seen at bedside, sitting comfortably Feeling well Continue to monitor PILAR PHELPS Nov 16, 2022 09:55 JUDD DC MD Nov 16, 2022 14:48
--- NOTE | 2022-11-16 11:41 | Diagnostic Imaging Report ---
Indication: Spontaneous pneumothorax. Time of Exam: 4:52 AM Correlation is made with prior chest from one day earlier. Thora vent catheter on the left remains in place. There continues to be a small left apical pneumothorax, similar to prior exam. Lungs are clear. There is no effusion. IMPRESSION: Stable left apical pneumothorax when compared exam one day earlier. Dictated by: Dictated on workstation # [id number]
[2022-11-16 12:04] VITALS: BP 124/60
[2022-11-16 15:31] VITALS: BP 154/75
[2022-11-16 19:34] VITALS: BP 115/61
[2022-11-16 23:27] VITALS: BP 107/58
[2022-11-17] VITALS (8 sets, daily range): BP systolic 98–129; BP diastolic 52–72
[2022-11-17] MEDS: CATHETER FLUSH 10 ML SYR IVP SCH ×3 (05:49→21:18)
--- NOTE | 2022-11-17 07:07 | Progress Note - Surgery ---
DON SAMPSON 11/17/22 0707: Subjective Date Seen by a Provider: Nov 17, 2022 Time Seen by a Provider: 06:50 Subjective/Events-last exam Patient is feeling well today. He denies SOB and chest pain. His CXR showed improvement of pneumo, still not resolved. He is still connected to the [facility] and there is a small air leak noted this AM. There is also blood present in the [facility]. Review of Systems General: No Chills, No Night Sweats HEENT: No Head Aches, No Dysphasia, No Sore Throat Pulmonary: No Dyspnea, No Cough Cardiovascular: No: Chest Pain, Palpitations, Lt Headedness Gastrointestinal: No: Nausea, Vomiting, Abdominal Pain Genitourinary: No Dysuria, No Frequency Musculoskeletal: No: neck pain, shoulder pain, back pain Neurological: No: Weakness, Numbness, Confusion Objective Exam Vital Signs Date Time Temp Pulse Resp B/P (MAP) Pulse Ox O2 Delivery O2 Flow Rate FiO2 11/17/22 03:23 36.8 57 20 108/59 (75) 97 Room Air 11/17/22 01:00 50 11/16/22 23:27 36.8 50 20 107/58 (74) 96 Room Air 11/16/22 20:00 Room Air 11/16/22 19:34 36.9 51 20 115/61 (79) 98 Room Air 11/16/22 19:00 53 11/16/22 15:31 36.5 75 18 154/75 (101) 97 Room Air 11/16/22 13:09 55 11/16/22 12:04 36.5 57 20 124/60 (81) 97 Room Air 11/16/22 08:00 Room Air 11/16/22 07:51 36.4 45 16 110/54 (72) 99 Room Air 11/16/22 07:34 45 I & O 11/17/22 07:00 Intake Total 2090 ml Output Total 12 ml Balance 2078 ml Capillary Refill : General Appearance: No Apparent Distress, Thin HEENT: PERRL/EOMI, Moist Mucous Membranes Neck: Non Tender, Supple Respiratory: No Accessory Muscle Use, No Respiratory Distress, Decreased Breath Sounds (left apex, improved from yesterday) Cardiovascular: No Murmur, Bradycardia, Other (left anterior chest c thoravent) Gastrointestinal: non tender, soft Extremity: Non Tender, No Calf Tenderness Neurologic/Psychiatric: Alert, Oriented x3 Skin: Normal Color, Warm/Dry Lymphatic: No Adenopathy Assessment/Plan Assessment/Plan Assessment/Plan left spontaneous pneumothorax S/P thoravent placement Patient still hooked up to [facility]/suction. Pain control PRN Chest x ray this morning completed, small left pneumo, improved from yesterday Left pneumo has not resolved, we will keep him to atrium/suction Repeat chest x ray in am Cardiology consulted and has seen patient Clinical Quality Measures AMI/AHF: ASA po Prior to arrival: JOSEMANUEL Garcia DO 11/17/221933: Subjective Subjective/Events-last exam No new complaints. Feeling well. No shortness of breath or chest pain. Chest x ray reviewed and tiny residual left pneumothorax. Still with air leak at atrium which is on suction. Denies n/v fever sweats chills shortness of breath or chest pain. Objective Exam General Appearance: No Apparent Distress, Thin HEENT: PERRL/EOMI, Normal ENT Inspection, Moist Mucous Membranes Neck: Non Tender, Supple Respiratory: Chest Non Tender, No Accessory Muscle Use, No Respiratory Distress Cardiovascular: Bradycardia, Other (left anterior chest c thoravent) Gastrointestinal: non tender, soft Extremity: Non Tender, No Calf Tenderness Neurologic/Psychiatric: Alert, Oriented x3 Skin: Normal Color, Warm/Dry Lymphatic: No Adenopathy Assessment/Plan Assessment/Plan Assessment/Plan left spontaneous pneumothorax S/P thoravent placement Patient still hooked up to [facility]/suction with air leak continue to suction Pain control PRN Chest x ray this morning completed, small left pneumo, improved from yesterday Repeat chest x ray in am Cardiology consulted and has seen patient consider taking off atrium tomorrow Supervisory-Addendum Brief Verification & Attestation Participated in pt care: history, MDM, physical Personally performed: exam, history, MDM, supervision of care Care discussed with: Medical Student Procedures: n/a Results interpretation: Verified all documentation Verification and Attestation of Medical Student E/M Service A medical student performed and documented this service in my presence. I reviewed and verified all information documented by the medical student and made modifications to such information, when appropriate. I personally performed the physical exam and medical decision making. Josemanuel Lemus, Nov 17, 2022,19:34 DON SAMPSON Nov 17, 2022 07:07 JOSEMANUEL LEMUS DO Nov 17, 2022 19:34
--- NOTE | 2022-11-17 08:45 | Cardiology Progress Note ---
Subjective Date Seen by Provider: Nov 17, 2022 Time Seen by Provider: 08:45 Subjective/Events-last exam Patient was seen and evaluated, sitting in bed comfortable. No new complaint Objective-Cardiology Exam Last Set of Vital Signs Vital Signs 11/17/22 07:29 Temp 36.3 Pulse 65 Resp 18 B/P (MAP) 98/52 (67) Pulse Ox 98 O2 Delivery Room Air I&O Intake and Output 11/17/22 00:00 Intake Total 2140 ml Balance 2140 ml Intake Oral 2140 ml # Voids 5 # Bowel Movements 1 General: Alert, Oriented X3, Cooperative HEENT: Atraumatic, PERRLA Neck: Supple, No JVD, No Thyromegaly Lungs: Clear to Auscultation, Normal Air Movement Heart: Regular Rate, Normal S1, Normal S2, No Murmurs Abdomen: Normal Bowel Sounds, Soft, No Tenderness, No Hepatosplenomegaly, No Masses Extremities: No Clubbing, No Cyanosis, No Edema, Normal Pulses, No Tenderness/Swelling Skin: No Rashes, No Breakdown, No Significant Lesion Neuro: Normal Gait, Normal Speech, Strength at 5/5 X4 Ext, Normal Tone, Sensation Intact Psych/Mental Status: Mental Status NL, Mood NL A/P-Cardiology Admission Diagnosis Chest pain Right bundle branch block Pneumothorax Assessment/Plan Chest pain, nonspecific etiology Secondary to spontaneous pneumothorax. Status post chest tube placement. Continue to monitor Abnormal EKG with incomplete right bundle branch block alternating with right bundle branch block Did not change from his baseline. Continue to monitor 2D echo was somewhat limited, showing normal LV size and contractility. Ejection fraction 60%. Stress test done in August 2017 with excellent exercise tolerance for 19 minutes on Gerardo protocol with hypertensive response to exercise and no arrhythmia noted or ischemic changes. 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 We discussed the need for pulmonary evaluation which will be scheduled as an outpatient. I will sign off at this point. Please feel free to consult us if needed Thank you for allowing me to participate in the management of . Lobito DCJUDD MD Nov 17, 2022 08:45
--- NOTE | 2022-11-17 09:14 | Diagnostic Imaging Report ---
INDICATION: Pneumothorax. Comparison is made with prior exam of 11/16/2022 FINDINGS: Heart size is normal. Left chest tube is in place. There is no pleural effusion. There is a tiny residual left apical pneumothorax. The mediastinum is unremarkable. IMPRESSION: Tiny residual left apical pneumothorax otherwise unremarkable. Dictated by: Dictated on workstation # [id number]
[2022-11-18 04:22] VITALS: BP 104/58
[2022-11-18] MEDS: CATHETER FLUSH 10 ML SYR IVP SCH ×2 (05:51→14:31)
--- NOTE | 2022-11-18 07:23 | Progress Note - Surgery ---
DON SAMPSON 11/18/22722: Subjective Date Seen by a Provider: Nov 18, 2022 Time Seen by a Provider: 07:00 Subjective/Events-last exam Patient feeling the same today as yesterday. No SOB, cough, or CP. CXR this morning showed that his right sided pneumo has not yet resolved. He has no air leak in his atrium, when asked to cough there is still a small air leak at the thoravent. Review of Systems General: No Chills, No Night Sweats HEENT: No Head Aches, No Visual Changes, No Dysphasia, No Sore Throat Pulmonary: No Dyspnea, No Cough Cardiovascular: No: Chest Pain, Palpitations Gastrointestinal: No: Nausea, Vomiting, Abdominal Pain Genitourinary: No Dysuria, No Frequency Musculoskeletal: No: neck pain, shoulder pain Neurological: No: Weakness, Numbness, Confusion Objective Exam Vital Signs Date Time Temp Pulse Resp B/P (MAP) Pulse Ox O2 Delivery O2 Flow Rate FiO2 11/18/22 04:22 36.8 59 18 104/58 (73) 98 11/18/22 01:00 62 11/17/22 23:42 37.3 60 18 129/71 (90) 97 Room Air 11/17/22 21:15 Room Air 11/17/22 20:01 36.9 53 18 120/72 (88) 99 Room Air 11/17/22 19:00 60 11/17/22 18:00 56 108/56 (73) Room Air 11/17/22 17:25 36.8 50 18 105/60 (75) 98 Room Air 11/17/22 12:35 55 11/17/22 11:26 37.0 59 18 120/69 (86) 100 Room Air 11/17/22 08:00 Room Air 11/17/22 07:29 36.3 65 18 98/52 (67) 98 Room Air I & O 11/18/22 07:00 Intake Total 1500 ml Balance 1500 ml Capillary Refill : General Appearance: No Apparent Distress, Thin HEENT: PERRL/EOMI, Moist Mucous Membranes Neck: Non Tender, Supple Respiratory: No Accessory Muscle Use, No Respiratory Distress Cardiovascular: No Murmur, Bradycardia, Other (left anterior chest c thoravent) Gastrointestinal: non tender, soft Extremity: Non Tender, No Calf Tenderness Neurologic/Psychiatric: Alert, Oriented x3 Skin: Normal Color, Warm/Dry Lymphatic: No Adenopathy Assessment/Plan Assessment/Plan Assessment/Plan left spontaneous pneumothorax S/P thoravent placement Patient still hooked up to [facility]rium/suction, air leak improved from yesterday Pain control PRN Chest x ray this morning completed, small left pneumo, improved from yesterday Repeat chest x ray in am Cardiology consulted and has seen patient consider taking off atrium today Clinical Quality Measures AMI/AHF: ASA po Prior to arrival: JOSEMANUEL Garcia DO 11/18/22 1548: Subjective Subjective/Events-last exam No new complaints. Breathing okay. No air leak in atrium. Chest x ray with stable small left pneumothorax. Denies n/v fever sweats chills shortness of breath or chest pain. Objective Exam General Appearance: No Apparent Distress, Thin HEENT: PERRL/EOMI, Normal ENT Inspection Neck: Non Tender, Supple Respiratory: Chest Non Tender, No Accessory Muscle Use, No Respiratory Distress Cardiovascular: Regular Rate, Rhythm, No JVD, Other (left anterior chest c thoravent) Gastrointestinal: non tender, soft Extremity: Non Tender, No Calf Tenderness Neurologic/Psychiatric: Alert, Oriented x3 Skin: Normal Color, Warm/Dry Lymphatic: No Adenopathy Assessment/Plan Assessment/Plan Assessment/Plan left spontaneous pneumothorax S/P thoravent placement Patient still hooked up to atrium/suction, air leak improved from yesterday Pain control PRN Chest x ray this morning completed, stable small left pneumo, improved from yesterday Taking off atrium today and will repeat chest x ray. If still stable can dc home with thoravent and arrange outpatient x ray on Monday to see if resolved. Patient still understands risk of it coming back still. Supervisory-Addendum Brief Verification & Attestation Participated in pt care: history, MDM, physical Personally performed: exam, history, MDM, supervision of care Care discussed with: Medical Student Procedures: n/a Results interpretation: Verified all documentation Verification and Attestation of Medical Student E/M Service A medical student performed and documented this service in my presence. I reviewed and verified all information documented by the medical student and made modifications to such information, when appropriate. I personally performed the physical exam and medical decision making. Josemanuel Lemus, Nov 18, 2022,15:48 DON SAMPSON Nov 18, 2022 07:23 JOSEMANUEL LEMUS DO Nov 18, 2022 15:48
[2022-11-18 07:51] VITALS: BP 96/55
--- NOTE | 2022-11-18 10:16 | Diagnostic Imaging Report ---
EXAMINATION: Chest 1 view HISTORY: Followup spontaneous pneumothorax on the left. COMPARISON: 11/17/2022. FINDINGS: Stable left-sided chest tube. Small left-sided pneumothorax appears stable. No mediastinal shift. No pleural effusion. The lungs are clear. The heart size is stable. IMPRESSION: 1. Stable small left-sided pneumothorax with stable left-sided chest tube. Dictated by: Dictated on workstation # [id number]
[2022-11-18 12:03] VITALS: BP 132/76
[2022-11-18 15:22] VITALS: BP 125/71
--- NOTE | 2022-11-18 16:52 | Diagnostic Imaging Report ---
EXAMINATION: Chest 1 view HISTORY: Pneumothorax. COMPARISON: Same day. FINDINGS: The lungs are clear without edema or pneumonia. There is a small left pneumothorax, unchanged. Left-sided chest tube is present. Heart size is normal. IMPRESSION: 1. Stable small left pneumothorax with a left-sided chest tube. Dictated by: Dictated on workstation # [id number]
--- NOTE | 2022-11-18 17:56 | Discharge Inst-Simple/Standard ---
Discharge Inst-Standard Patient Instructions/Follow Up Plan of Care/Instructions/FU: Monday Mariah. Prior to that get chest x ray Monday morning. Any chest pain or shortness of breath return to emergency dept immediately. Activity as Tolerated: Yes Discharge Diet: Regular Diet Other Inst to Patient Follow up Appt: Make appointment for 2 week. Instructions: No strenuous activity. May shower, tub bath or soak as long as don't get chest wet. No Smoking Any chest pain or shortness of breath return to emergency dept immediately. Skin/Wound Care: Keep left chest dry. Symptoms to Report: Appetite Changes, Extremity Discoloration, Numbness/Tingling, Swelling Increased, Bleeding Excessive, Eyesight Changes, Pain Increased, Urine Color Change, Constipation(Persistent), Fever over 101 degree F, Pain/Pressure in chest, Urinating Difficulty, Cough Up/Vomit Blood, Heart Beat Irreg/Pounding, Pain/Pressure in jaw, Vaginal Bleeding Increase, Cramps in feet or legs, Lightheadedness, Pain/Pressure in shoulder, Diarrhea(Persistent), Memory Changes Suddenly, Questions/Concerns, Weight gain consecutive days, Dizziness/Fainting, Nausea/Vomiting, Shortness of Breath, Weight gain over 2 pounds If questions or concerns contact your physician Or seek help at emergency department. JOSEMANUEL FLOWERS DO Nov 18, 2022 17:56
== END 2022-11-18 18:46 | disposition home or self-care (01) | DRG 201 ==
LOC: EDUNIT# 10:44 → ER 10:48 → 4TH 13:31
PROVIDERS: ADMIT Surgery; ATTEND Surgery
PROC: 0W9B30Z Drainage of Left Pleural Cavity with Drainage Device, Percutaneous Approach (ICD-10-PCS; principal; 2022-11-14)
DX: J93.83 Other pneumothorax (principal); I45.10 Unspecified right bundle-branch block
CPT/HCPCS: 32551; 36415; 71045; 71046; 80053; 83690; 83735; 83874; 83880; 84484; 85025; 85610; 85730; 93005; 93041; 93306

== ENCOUNTER → 2022-11-21 | Outpatient (CLI) | payer BC ==
--- NOTE | 2022-11-21 15:52 | Diagnostic Imaging Report ---
INDICATION: Thora Vent removal. Two View Chest showed no pneumothorax or pleural fluid. The lungs clear. IMPRESSION: Unremarkable 2 view chest. Dictated by: Dictated on workstation # [id number]
== END ==
LOC: RAD 15:30
PROVIDERS: ATTEND Surgery
DX: J93.83 Other pneumothorax (principal); Z98.890 Other specified postprocedural states
CPT/HCPCS: 71046

== ENCOUNTER → 2022-11-21 | Outpatient (CLI) | payer BC ==
--- NOTE | 2022-11-21 11:00 | Diagnostic Imaging Report ---
INDICATION: Follow-up pneumothorax. Time of Exam: 8:38 AM Correlation is made with prior study from 11/14/2022. Left sided Thora-Vent remains in place. There has been reexpansion of the left lung. No residual pneumothorax is identified. Right lung is clear. There is no effusion. IMPRESSION: Reexpansion of the left lung. No residual pneumothorax is identified on today's study. Dictated by: Dictated on workstation # [id number]
== END ==
LOC: RAD 08:11
PROVIDERS: ATTEND Surgery
DX: J93.83 Other pneumothorax (principal)
CPT/HCPCS: 71046